=== PATIENT | female | born 1945 | race Caucasian/White ===

== ENCOUNTER 2018-06-24 08:42 | Day surgery (SDC) | payer MEDICARE, SELFPAY ==
--- NOTE | 2018-06-23 13:15 | POEE_ITS ---
History of Present Illness Chief Complaint: Progressive decreased vision, right eye Narrative: The patient is a 72-year-old lady with history of glaucoma maintained on 2 medications. She has noted progressive decreased vision in her right eye. She has previously undergone cataract surgery in her left eye in 2013. On examination she is noted to have moderate nuclear cataract in the right eye. The option of cataract surgery was offered to the patient and she wished to proceed. NOTE: The Chief Complaint, HPI, Past Medical History, Past Surgical History, Family History, Social History, Medications, and complete Ophthalmic Exam with detailed Assessment and Plan have already been documented in the patient's outpatient ophthalmic record and are not covered again in detail here. [facility] Medical History Primary open angle glaucoma (POAG) of left eye, mild stage (Chronic) Primary open angle glaucoma (POAG) of right eye, mild stage (Chronic) Nuclear sclerotic cataract of right eye (Acute) History of DVT of lower extremity (Acute) History of anemia (Acute) Left cataract (Acute) Memory change (Acute) Peripheral neuropathy (Acute) Restless leg syndrome (Acute) Warfarin anticoagulation (Acute) Glaucoma (Chronic) Hypertension (Chronic) Surgical History Status post cataract extraction and insertion of intraocular lens of left eye (Chronic 10/15/14) History of right breast biopsy (Acute) History of cataract surgery (Chronic) History of colonoscopy (Chronic) History of esophagogastroduodenoscopy (EGD) (Chronic) Social History Smoking/Tobacco Use Status: Former Tobacco Use Drug use: Occasionally Meds Home Medications Medication Instructions Recorded Confirmed Type alprazolam 0.5 mg PO HS 09/01/13 06/21/18 History betamethasone valerate 1 ea TOPICAL BID PRN 09/01/13 06/21/18 History gabapentin 300 mg PO HS 09/01/13 06/21/18 History latanoprost [Xalatan] 1 drp OPHTHALMIC DAILY 09/01/13 06/21/18 History ropinirole [Requip] 5 mg PO HS 09/01/13 06/21/18 History timolol maleate 1 drp OPHTHALMIC DAILY 09/01/13 06/21/18 History warfarin [Coumadin] 2.5 - 5 mg PO DIRECTED 09/01/13 06/21/18 History amlodipine 2.5 mg PO DAILY 06/21/18 06/21/18 History ascorbic acid (vitamin C) [Vitamin 500 mg PO DAILY 06/21/18 06/21/18 History C] calcium carbonate-vitamin D3 1 cap PO DAILY 06/21/18 06/21/18 History [Calcium 600 + D(3)] ferrous sulfate [iron] 325 mg PO .EVERY OTHER DAY 06/21/18 06/21/18 History Allergies Allergy/AdvReac Type Severity Reaction Status Date / Time NSAIDS (Non-Steroidal Allergy Unknown Unverified 09/05/13 06:52 Anti-Inflamma piroxicam [From Feldene] Allergy Unknown Unverified 09/05/13 06:52 shellfish derived Allergy Unknown Unverified 09/05/13 06:52 tetanus toxoid, adsorbed Allergy Unknown Unverified 09/05/13 06:52 Exam OCULAR EXAM:: Most recent ocular examination is significant for corrected visual acuity of 20/70 OD, 20/20 OS. Intraocular pressure is 15 OD, 14 OS. Extr aocular motility is normal. Slit-lamp exam reveals a 2+ nuclear cataract OD with pupils dilating to 6 mm. There is a well-positioned PCIOL OS with clear posterior capsule. Dilated exam reveals disc cupping of 0.6 OD 0.5 OS with normal vessels, macula, peripheral retina and vitreous. BRIGHTNESS ACUITY TESTING (BAT):: Brightness acuity testing of the right eye off is 20/70. Low is 20/80. Medium is 20/100. High is 20/100. Assessment and Plan (1) Nuclear sclerotic cataract of right eye: Current visit: No Status: Acute Assessment: Visually significant cataract, right eye. Plan: Cataract extraction with intraocular lens implantation, right eye Note: NOTE:: The details of the planned surgery, including the risks, i ndications,limitations,expectations,outcome and possible complications were explained to the patient. The patient understands the complications including, but not limited to: infection, hemorrhage, posterior dislocation of the lens or nuclear fragments which may require the intervention of a vitreoretinal surgeon, possible loss of the eye, or from anesthetic complications. The patient has been made aware of the option of not having surgery, that vision following surgery may not be equal to that prior to surgery, and that the planned surgery may not achieve the intended results. Following this discussion, which the patient appeared to understand, the patient wishes to proceed with cataract surgery with lens implantation of the affected eye to improve and maximize vision.
[2018-06-24] MEDS: Tropicam./Phenyleph. (1/2.5%) 5 ML BTL OD ×3 (09:34→09:48)
[2018-06-24] MEDS: Tetracaine 0.5% 4 ML BTL OD ×4 (09:34→11:06)
[2018-06-24 09:36] VITALS: BP 161/80; PULSE 60; RESP 16; TEMP 35.6; O2SAT 98
[2018-06-24] MEDS: Lidocaine 2% Jelly 6 ML SYR (11:06)
[2018-06-24] MEDS: Povidone-Iodine Ophth 30 ML BTL (11:06)
[2018-06-24] MEDS: Lidocaine 1% Pres-Free 5 ML VIAL (11:10)
[2018-06-24] MEDS: Balanced Salt Soln.-PLUS 500 ML BAG (11:10)
--- NOTE | 2018-06-24 11:35 | W.PM.DSUDISC ---
Discharge Plan Disposition Patient Disposition: HOME Condition: Stable Discharge Details Attending Provider: Anam Perkins Primary Care Provider: Sara Irving Home Meds and New Rx's Prescriptions: No Action latanoprost [Xalatan] 2.5 ML drops 1 drp Ophthalmic DAILY RF: 0 alprazolam 0.5 MG tablet 0.5 mg PO HS RF: 0 betamethasone valerate 15 GM cream 1 ea Topical BID PRN RF: 0 ropinirole [Requip] 0.5 MG tablet 5 mg PO HS RF: 0 warfarin [Coumadin] 5 MG tablet 2.5 - 5 mg PO DIRECTED RF: 0 gabapentin 300 MG capsule 300 mg PO HS RF: 0 timolol maleate 5 ML drops 1 drp Ophthalmic DAILY RF: 0 amlodipine 2.5 mg Tablet 2.5 mg PO DAILY RF: 0 ascorbic acid (vitamin C) [Vitamin C] 500 mg Tablet 500 mg PO DAILY RF: 0 ferrous sulfate [iron] 325 mg (65 mg iron) Tablet 325 mg PO .EVERY OTHER DAY RF: 0 Calcium 600 + D(3) 600 mg calcium- 200 unit Capsule 1 cap PO DAILY RF: 0 Discharge Instructions Stand Alone Forms: Post-op Topical Cataract, Yanique Alonzoey (DSU) Discharge Orders Discharge Orders: Discharge Order (Routine); Ordered 06/24/18 Ordered By: Anam Perkins DS: Diagnosis Discharge Diagnosis (1) Nuclear sclerotic cataract of right eye: Status: Acute (2) Status post cataract extraction and insertion of intraocular lens of right eye: Status: Chronic
--- NOTE | 2018-06-24 11:39 | W.PM.OP ---
Date of service: 06/24/18 Time of Service: 11:40 Operative Note PRE-OP DIAGNOSIS: Cataract, right eye PROCEDURE: Cataract extraction using phacoemulsification with intraocular lens implant, right eye SURGEON: Anam Perkins ANESTHESIA: MAC and local (sub-tenon's anesthetic infiltration) ESTIMATED BLOOD LOSS: 0 PATHOLOGY: none sent COMPLICATIONS: None Patient was transported to: same day Patient's condition: stable Implants: D[employer] / [employer] Tecnis ZCB00 intraocular lens Indications: Progressive decreased vision due to cataract, right eye Procedure Description: CATARACT SURGERY OPERATIVE REPORT PREOPERATIVE DIAGNOSIS: Nuclear cataract, right eye POSTOPERATIVE DIAGNOSIS: Same OPERATION: Cataract extraction using phacoemulsification with posterior chamber intraocular lens implant, right eye. IOL: IOL Echo Technologist/Model: J&J locr / MER Tecnis ZCB00 IOL Power: + 20.50 diopters IOL Serial Number: [id number] Optic Diameter: 6.0mm Haptic/Overall Diameter: 13.0mm PHACO INFO: Teddy Teez.mobiurion Vision System with OZil and Active Fluidics Cumulative Dispersed Energy (CDE): 11.26 seconds SURGEON: Anam Perkins MD, CARSON ANESTHESIA: Monitored Anesthesia Care (MAC), with local sub-tenon's anesthetic infiltration COMPLICATIONS: None SPECIMENS: None INDICATIONS FOR PROCEDURE: The patient is a 72-year-old lady with history of open-angle glaucoma who has previously undergone cataract surgery of her left eye in 2013. She has now developed a significant nuclear cataract in her right eye and is symptomatic enough that she desires cataract surgery and attempt to improve and maximize her vision. PROCEDURE: The correct surgical eye was identified and marked as the right eye and the pupil was dilated in the preoperative area using mydriatics and cycloplegics. The dilated pupil size was 7.0 mm. Oral sedation was administered in the form of an Imprimis MKO Melt (midazolam 3mg/ketamine 25mg/ondansetron 2mg). The patient was brought to the operating room where cardiopulmonary monitoring was instituted and surgical time-out was performed, confirming the correct operative eye and IOL power. Topical anesthesia was administered and ophthalmic povidone-iodine 5% was instilled into the conjunctival fornices. Lidocaine gel was applied to the cornea and the carlos-ocular area was prepped with Betadine 10% solution and draped in the usual sterile fashion for intraocular surgery, including an aperture drape. A Tegaderm transparent film dressing was cut in half and used to cover the lashes and lid margins. Care was taken to sequester the lashes and lid margins under the Tegaderm dressing. A lid speculum was placed between the lids of the operative eye and the Tabby-Sharron operating microscope was maneuvered into position. Nathalie scissors were then used to make a conjunctival buttonhole approximately 6mm posterior to the limbus in the inferonasal quadrant. Blunt dissection was carried out to expose bare sclera, and a blunt-tipped sub-tenon?s anesthesia cannula was introduced and passed posteriorly along the globe where non-preserved plain lidocaine was injected into posterior sub-Tenon?s space. A sideport knife was used to make a paracentesis port inferiortemporally, and the anterior chamber was filled with Healon GV. A 2.4mm keratome knife was used to create a half-thickness groove at the limbus and then to construct a three-plane near-clear corneal tunnel extending 2.0mm into clear cornea in the superiortemporal position. . A flap was raised on the anterior capsule and capsulorhexis forceps were used to complete a continuous curvilinear capsulorhexis of 5.0 mm. Balanced salt solution was then used to perform cortical cleaving hydrodissection and nuclear hydrodelineation until the lens could be freely rotated within the capsular bag. The lens nucleus was then disassembled and removed within the capsular bag and iris plane using phacoemulsification. Residual cortical material was removed using the I/A handpiece. The posterior capsule was carefully polished to remove as much residual lens epithelial cells as safely possible. The capsular bag was then inflated and the anterior chamber deepened with viscoelastic. The lens implant described above was inserted into the capsular bag using the MER [place] Injector. A Kuglen hook was used to dial the IOL into position. Residual viscoelastic was then removed first from posterior to the IOL, then from the anterior chamber using the I/A handpiece. The lens implant was noted to center nicely within the capsular bag. The incisions were stromally hydrated, and the anterior chamber was reformed using BSS. Then 0.4cc of moxifloxacin 1.5mg/ml were injected into the capsular bag and anterior chamber. The incisions were checked with a Weck spear and found to be secure. Several drops of ophthalmic povidone-iodine 5% were then applied to the eye followed by two drops of Imprimis combination moxifloxacin/dexamethasone solution. The drapes were removed and a clear plastic protective eye shield was placed over the eye. The patient was then returned to Same Day Surgery in stable condition.
--- NOTE | 2018-06-24 11:43 | ROE_ITS ---
Date of service: 06/24/18 Time of Service: 11:40 Operative Note PRE-OP DIAGNOSIS: Cataract, right eye PROCEDURE: Cataract extraction using phacoemulsification with intraocular lens implant, right eye SURGEON: Anam Perkins ANESTHESIA: MAC and local (sub-tenon's anesthetic infiltration) ESTIMATED BLOOD LOSS: 0 PATHOLOGY: none sent COMPLICATIONS: None Patient was transported to: same day Patient's condition: stable Implants: Dane [employer] Dane [employer] / [employer] Tecnis ZCB00 intraocular lens Indications: Progressive decreased vision due to cataract, right eye Procedure Description: CATARACT SURGERY OPERATIVE REPORT PREOPERATIVE DIAGNOSIS: Nuclear cataract, right eye POSTOPERATIVE DIAGNOSIS: Same OPERATION: Cataract extraction using phacoemulsification with posterior chamber intraocular lens implant, right eye. IOL: IOL Sagger Maker/Model: J[employer]J [employer] / MER Tecnis ZCB00 IOL Power: + 20.50 diopters IOL Serial Number: [id number] Optic Diameter: 6.0mm Haptic/Overall Diameter: 13.0mm PHACO INFO: Teddy AiCurisurion Vision System with OZil and Active Fluidics Cumulative Dispersed Energy (CDE): 11.26 seconds SURGEON: Anam Perkins MD, CARSON ANESTHESIA: Monitored Anesthesia Care (MAC), with local sub-tenon's anesthetic infiltration COMPLICATIONS: None SPECIMENS: None INDICATIONS FOR PROCEDURE: The patient is a 72-year-old lady with history of open-angle glaucoma who has previously undergone cataract surgery of her left eye in 2013. She has now developed a significant nuclear cataract in her right eye and is symptomatic enough that she desires cataract surgery and attempt to improve and maximize her vision. PROCEDURE: The correct surgical eye was identified and marked as the right eye and the pupil was dilated in the preoperative area using mydriatics and cycloplegics. The dilated pupil size was 7.0 mm. Oral sedation was administered in the form of an Imprimis MKO Melt (midazolam 3mg/ketamine 25mg/ondansetron 2mg). The patient was brought to the operating room where cardiopulmonary monitoring was instituted and surgical time-out was performed, confirming the correct operative eye and IOL power. Topical anesthesia was administered and ophthalmic povidone-iodine 5% was instilled into the conjunctival fornices. Lidocaine gel was applied to the cornea and the carlos-ocular area was prepped with Betadine 10% solution and draped in the usual sterile fashion for intraocular surgery, including an aperture drape. A Tegaderm transparent film dressing was cut in half and used to cover the lashes and lid margins. Care was taken to sequester the lashes and lid margins under the Tegaderm dressing. A lid speculum was placed between the lids of the operative eye and the Tabby-Sharron operating microscope was maneuvered into position. Nathalie scissors were then used to make a conjunctival buttonhole approximately 6mm posterior to the limbus in the inferonasal quadrant. Blunt dissection was carried out to expose bare sclera, and a blunt-tipped sub-tenon?s anesthesia cannula was introduced and passed posteriorly along the globe where non- preserved plain lidocaine was injected into posterior sub-Tenon?s space. A sideport knife was used to make a paracentesis port inferiortemporally, and the anterior chamber was filled with Healon GV. A 2.4mm keratome knife was used to create a half-thickness groove at the limbus and then to construct a three-plane near-clear corneal tunnel extending 2.0mm into clear cornea in the superiortemporal position. . A flap was raised on the anterior capsule and capsulorhexis forceps were used to complete a continuous curvilinear capsulorhexis of 5.0 mm. Balanced salt solution was then used to perform cortical cleaving hydrodissection and nuclear hydrodelineation until the lens could be freely rotated within the capsular bag. The lens nucleus was then disassembled and removed within the capsular bag and iris plane using phacoemulsification. Residual cortical material was removed using the I/A handpiece. The posterior capsule was carefully polished to remove as much residual lens epithelial cells as safely possible. The capsular bag was then inflated and the anterior chamber deepened with viscoelastic. The lens implant described above was inserted into the capsular bag using the MER [place] Injector. A Kuglen hook was used to dial the IOL into position. Residual viscoelastic was then removed first from posterior to the IOL, then from the anterior chamber using the I/A handpiece. The lens implant was noted to center nicely within the capsular bag. The incisions were stromally hydrated, and the anterior chamber was reformed using BSS. Then 0.4cc of moxifloxacin 1.5mg/ml were injected into the capsular bag and anterior chamber. The incisions were checked with a Weck spear and found to be secure. Several drops of ophthalmic povidone-iodine 5% were then applied to the eye followed by two drops of Imprimis combination moxifloxacin/dexamethasone solution. The drapes were removed and a clear plastic protective eye shield was placed over the eye. The patient was then returned to Same Day Surgery in stable condition.
[2018-06-24 11:54] VITALS: BP 130/79; PULSE 60; RESP 16; TEMP 36.6; O2SAT 98
== END 2018-06-24 12:11 | disposition home or self-care (01) ==
PROVIDERS: PCP Internal Medicine; Visit Provider Ophthalmology
PROC: (CPT 66984; principal; 2018-06-24 12:00)
DX: H25.11 Age-related nuclear cataract, right eye (principal); Z98.42 Cataract extraction status, left eye; Z96.1 Presence of intraocular lens; I10 Essential (primary) hypertension
CPT/HCPCS: 66984; V2632

== ENCOUNTER 2018-09-12 09:43 | Outpatient (CLI) | payer MEDICARE, SELFPAY ==
[2018-09-12 10:24] LABS: HCT 42.7 % (36.0-46.0); HGB 14.3 g/dL (12.0-15.5); Mean Corp. HGB Concentration 33.5 g/dL (32.0-36.0); Mean Corpuscular Hemoglobin 30.5 pg (27.0-33.0); Mean Platelet Volume 10.9 fL (8.0-11.0); Platelet Count 221 x1000/uL (130-400); RBC 4.69 m/cumm (4.00-5.20); RBC Distribution Width 13.5 % (11.7-14.6); White Blood Cell Count 5.16 k/cumm (4.4-10.8)
[2018-09-12 12:01] LABS: ALT 27 U/L (12-78); AST 27 U/L (15-37); Albumin 3.7 g/dL (3.4-5.0); Alkaline Phosphatase 67 U/L (46-116); Anion Gap 10.7 mmol/L (3-11); BUN 24 mg/dL (7-18); Bilirubin, Total 0.5 mg/dL (0.2-1.0); CO2 25.3 mmol/L (21.0-32.0); Calculated LDL 108; Chloride 106 mmol/L (98-107); Cholesterol 181 mg/dL (50-200); Estimated GFR 54.05 (mL/min/1.73m2); Glucose 100 mg/dL (70-100); HDL Cholesterol 46 mg/dL (40-60); Potassium 4.6 mmol/L (3.5-5.1); Sodium 142 mmol/L (136-145); Total Protein 7.2 g/dL (6.4-8.2); Triglyceride 138 mg/dL (30-150)
== END 2018-09-12 10:03 ==
PROVIDERS: PCP Nurse Practitioner; Visit Provider Nurse Practitioner
DX: G62.9 Polyneuropathy, unspecified (principal); I10 Essential (primary) hypertension; I82.409 Acute embolism and thrombosis of unspecified deep veins of unspecified lower extremity; Z86.718 Personal history of other venous thrombosis and embolism
CPT/HCPCS: 36415; 80053; 80061; 83721; 85027

== ENCOUNTER 2019-11-20 02:22 | Outpatient (CLI) | payer MEDICARE, SELFPAY ==
[2019-11-20 09:14] LABS: HCT 46.7 % (36.0-46.0); HGB 15.4 g/dL (11.2-15.7); MCH 30.1 pg (27.0-33.0); MCV 91.2 fL (80-95); MPV 10.6 fL (8.0-11.0); Platelet Count 238 10^3/uL (130-400); RBC 5.12 10^6/uL (3.93-5.22); RDW 12.8 % (11.7-14.6); RDW-SD 43.2 fL; WBC 5.89 10^3/uL (4.4-10.8)
[2019-11-20 10:35] LABS: ALT 28 U/L (14-59); AST 25 U/L (15-37); Albumin 3.7 g/dL (3.4-5.0); Alkaline Phosphatase 69 U/L (46-116); Anion Gap 9.5 mmol/L (3-11); BUN 24 mg/dL (7-18); Bilirubin, Total 0.5 mg/dL (0.2-1.0); CO2 26.5 mmol/L (21.0-32.0); CREATININE 1.09 mg/dL (0.55-1.02); Calcium 9.7 mg/dL (8.5-10.1); Calculated LDL 135 mg/dL (<100); Chloride 107 mmol/L (98-107); Cholesterol 212 mg/dL (<200); Glucose 99 mg/dL (74-106); HDL Cholesterol 49 mg/dL (40-60); Potassium 4.9 mmol/L (3.5-5.1); Sodium 143 mmol/L (136-145); Total Protein 7.2 g/dL (6.4-8.2); Triglyceride 144 mg/dL (<150)
== END 2019-11-20 02:42 ==
PROVIDERS: PCP Nurse Practitioner; Visit Provider Nurse Practitioner
DX: I10 Essential (primary) hypertension (principal); G25.81 Restless legs syndrome; Z86.718 Personal history of other venous thrombosis and embolism
CPT/HCPCS: 36415; 80053; 80061; 85027

== ENCOUNTER 2020-10-16 03:34 | Outpatient (CLI) | payer MEDICARE, SELFPAY ==
[2020-10-16 09:00] LABS: HCT 45.1 % (36.0-46.0); MCH 30.2 pg (27.0-33.0); MCHC 33.3 % (32.0-36.0); MCV 90.7 fL (80-95); MPV 10.5 fL (8.0-11.0); Platelet Count 219 10^3/uL (130-400); RBC 4.97 10^6/uL (3.93-5.22); RDW 12.8 % (11.7-14.6); RDW-SD 42.8 fL; WBC 5.99 10^3/uL (4.4-10.8)
[2020-10-16 09:51] LABS: ALT 29 U/L (14-59); AST 19 U/L (15-37); Albumin 3.8 g/dL (3.4-5.0); Alkaline Phosphatase 65 U/L (46-116); Anion Gap 9.4 mmol/L (3-11); BUN 26 mg/dL (7-18); Bilirubin, Total 0.5 mg/dL (0.2-1.0); CO2 26.6 mmol/L (21.0-32.0); CREATININE 1.3 mg/dL (0.55-1.02); Calcium 9.4 mg/dL (8.5-10.1); Chloride 109 mmol/L (98-107); Estimated GFR 39.72 (mL/min/1.73m2); Glucose 102 mg/dL (74-106); Potassium 4.5 mmol/L (3.5-5.1); Sodium 145 mmol/L (136-145); Total Protein 7.2 g/dL (6.4-8.2)
[2020-10-16 20:08] LABS: Calculated LDL 133 mg/dL (<100); Cholesterol 207 mg/dL (<200); HDL Cholesterol 51 mg/dL (40-60); Triglyceride 117 mg/dL (<150)
== END 2020-10-16 03:35 | disposition home or self-care (01) ==
LOC: LBO 03:35
PROVIDERS: PCP Nurse Practitioner; Visit Provider Nurse Practitioner
DX: I10 Essential (primary) hypertension (principal); E78.5 Hyperlipidemia, unspecified
CPT/HCPCS: 36415; 80053; 80061; 85027

== ENCOUNTER 2021-03-24 03:26 | Outpatient (CLI) | payer MEDICARE, SELFPAY ==
[2021-03-24 13:38] LABS: Anion Gap 7.7 mmol/L (3-11); BUN 22 mg/dL (7-18); CO2 27.3 mmol/L (21.0-32.0); CREATININE 1.1 mg/dL (0.55-1.02); Calcium 9.3 mg/dL (8.5-10.1); Chloride 106 mmol/L (98-107); Estimated GFR 48.16 (mL/min/1.73m2); Glucose 94 mg/dL (74-106); Potassium 4.4 mmol/L (3.5-5.1); Sodium 141 mmol/L (136-145)
== END 2021-03-24 03:27 | disposition home or self-care (01) ==
LOC: LBO 03:26
PROVIDERS: PCP Nurse Practitioner; Visit Provider Nurse Practitioner
DX: I10 Essential (primary) hypertension (principal); R79.89 Other specified abnormal findings of blood chemistry
CPT/HCPCS: 36415; 80048

== ENCOUNTER 2021-10-16 02:18 | Outpatient (CLI) | payer MEDICARE, SELFPAY ==
[2021-10-16 07:58] LABS: HCT 44.8 % (36.0-46.0); HGB 14.7 g/dL (11.2-15.7); MCH 29.8 pg (27.0-33.0); MCHC 32.8 % (32.0-36.0); MCV 91 fL (80-95); MPV 10.3 fL (8.0-11.0); Platelet Count 234 10^3/uL (130-400); RBC 4.93 10^6/uL (3.93-5.22); RDW 12.7 % (11.7-14.6); RDW-SD 42.5 fL; WBC 5.91 10^3/uL (4.4-10.8)
[2021-10-16 08:12] LABS: PTT Activated 24.7 sec (21.0-27.5); Prothrombin Time 10.1 sec (9.3-11.0)
[2021-10-16 08:58] LABS: ALT 27 U/L (14-59); AST 21 U/L (15-37); Albumin 3.8 g/dL (3.4-5.0); Alkaline Phosphatase 59 U/L (46-116); BUN 26 mg/dL (7-18); Bilirubin, Total 0.5 mg/dL (0.2-1.0); CREATININE 1.2 mg/dL (0.55-1.02); Calculated LDL 114 mg/dL (<100); Chloride 110 mmol/L (98-107); Cholesterol 188 mg/dL (<200); Estimated GFR 43.45 (mL/min/1.73m2); Glucose 97 mg/dL (74-106); HDL Cholesterol 54 mg/dL (40-60); Potassium 4.4 mmol/L (3.5-5.1); Sodium 146 mmol/L (136-145); Total Protein 7.6 g/dL (6.4-8.2); Triglyceride 103 mg/dL (<150)
== END 2021-10-16 02:19 | disposition home or self-care (01) ==
LOC: LBO 02:18
PROVIDERS: PCP Nurse Practitioner; Visit Provider Nurse Practitioner
DX: E78.5 Hyperlipidemia, unspecified (principal); I10 Essential (primary) hypertension; R06.02 Shortness of breath; Z86.718 Personal history of other venous thrombosis and embolism
CPT/HCPCS: 36415; 80053; 80061; 85027; 85610; 85730

== ENCOUNTER 2021-11-17 08:43 | Outpatient (CLI) | payer MEDICARE, SELFPAY ==
--- NOTE | 2021-11-17 08:30 | DI.RAD_ITS ---
Exam(s) XR KNEE RT 3V AP,LAT,KATEY EXAM: XR KNEE RT 3V AP,LAT,KATEY CLINICAL HISTORY: right knee pain. TECHNIQUE: 2D digital imaging was performed. COMPARISON: CR XR KNEE LT 3V AP,LAT,KATEY from 11/17/2021 FINDINGS: 3 views No evidence of fracture. There is a joint effusion. Significant narrowing of the medial compartment . Mild narrowing of the lateral compartment. Significant advanced narrowing of the patellofemoral c ompartment. Bone density normal. No osseous lesions IMPRESSION: Osteoarthritic degenerative changes as described above. Small joint effusion. DATA REPOSITORY: RADIATION DOSE DELIVERED:
--- NOTE | 2021-11-17 08:30 | DI.RAD_ITS ---
Exam(s) XR KNEE LT 3V AP,LAT,KATEY EXAM: XR KNEE LT 3V AP,LAT,KATEY CLINICAL HISTORY: left knee pain. TECHNIQUE: 2D digital imaging was performed. COMPARISON: No exams were available for comparison FINDINGS: 3 views No evidence of fracture or obvious joint effusion. There is advanced narrowing of the patellofemoral compartment, similar to the opposite side. Moderate narrowing of the medial compartment. Lateral mild narrowing. Marginal osteophytes. Bone d ensity normal. No ominous osseous lesions IMPRESSION: Osteoarthritic degenerative changes, most evident in the medial and patellofemoral compartments. DATA REPOSITORY: RADIATION DOSE DELIVERED:
== END 2021-11-17 08:44 | disposition home or self-care (01) ==
LOC: DIORS 08:44
PROVIDERS: PCP Nurse Practitioner; Referring Provider Nurse Practitioner; Visit Provider Physician Assistant
DX: M17.11 Unilateral primary osteoarthritis, right knee; M17.12 Unilateral primary osteoarthritis, left knee
CPT/HCPCS: 20610; 73562; 99214; J1040

== ENCOUNTER → 2022-01-12 08:51 | Outpatient (BNVA) | payer MEDICARE, SELFPAY | PROVIDERS: PCP Nurse Practitioner; Referring Provider Nurse Practitioner; Visit Provider Student in an Organized Health Care Education/Training Program | DX: M17.11 Unilateral primary osteoarthritis, right knee (principal); M17.12 Unilateral primary osteoarthritis, left knee | CPT/HCPCS: 99214 ==

== ENCOUNTER 2022-02-09 02:31 | Outpatient (CLI) | payer MEDICARE, SELFPAY ==
[2022-02-09 10:54] LABS: HCT 43.2 % (36.0-46.0); HGB 14.4 g/dL (11.2-15.7); MCH 30.5 pg (27.0-33.0); MCHC 33.3 % (32.0-36.0); MCV 92 fL (80-95); MPV 10.3 fL (8.0-11.0); Platelet Count 229 10^3/uL (130-400); RBC 4.72 10^6/uL (3.93-5.22); RDW 12.8 % (11.7-14.6); WBC 7.27 10^3/uL (4.4-10.8)
[2022-02-09 11:07] LABS: Anion Gap 7.1 mmol/L (3-11); BUN 22 mg/dL (7-18); CO2 26.9 mmol/L (21.0-32.0); CREATININE 1.3 mg/dL (0.55-1.02); Calcium 9.1 mg/dL (8.5-10.1); Chloride 106 mmol/L (98-107); Estimated GFR 42.09 (mL/min/1.73m2); Glucose 95 mg/dL (74-106); Potassium 4.4 mmol/L (3.5-5.1); Sodium 140 mmol/L (136-145)
== END 2022-02-09 02:32 | disposition home or self-care (01) ==
LOC: LBO 02:31
PROVIDERS: PCP Nurse Practitioner; Visit Provider Student in an Organized Health Care Education/Training Program
DX: M17.11 Unilateral primary osteoarthritis, right knee (principal); Z01.818 Encounter for other preprocedural examination
CPT/HCPCS: 36415; 80048; 85027

== ENCOUNTER 2022-02-09 09:54 | Outpatient (CLI) | payer MEDICARE, SELFPAY ==
--- NOTE | 2022-02-09 09:30 | DI.RAD_ITS ---
Exam(s) XR KNEE RT 1V EXAM: XR KNEE RT 1V CLINICAL HISTORY: TKR planning. TECHNIQUE: 2D digital imaging was performed. COMPARISON: CR XR KNEE RT 3V AP,LAT,KATEY from 11/17/2021 FINDINGS: Single lateral view: No evidence of obvious fracture but there is a joint effusion. Advanced narrowing of the patellofemo ral compartment noted. Also significant narrowing of the medial compartment. Bone density normal. No osseous lesions. IMPRESSION: Degenerative changes. DATA REPOSITORY: RADIATION DOSE DELIVERED:
--- NOTE | 2022-02-09 09:30 | DI.RAD_ITS ---
Exam(s) XR STANDING ALIGNMENT EXAM: XR STANDING ALIGNMENT CLINICAL HISTORY: TKR planning. TECHNIQUE: 2D digital imaging was performed. COMPARISON: CR XR KNEE RT 3V AP,LAT,KATEY from 11/17/2021 CR XR KNEE LT 3V AP,LAT,KATEY from 11/17/2021 FINDINGS: 3 views There is advanced narrowing of the medial compartment of the right knee and marginal osteophytes agai n noted. Lateral compartment of the right knee exhibits preserved height but there does appear to be an intra-articular osteophyte at this level. There is milder narrowing of the medial compartment of the opposite-left knee. Bone density normal. No osseous lesions. Hips appear unremarkable as do the ankles. IMPRESSION: Medial compartment degenerative changes bilaterally but with minimal change compared to prior images of 11/17/2021. DATA REPOSITORY: RADIATION DOSE DELIVERED:
== END 2022-02-09 09:55 | disposition home or self-care (01) ==
LOC: DIORS 09:54
PROVIDERS: PCP Nurse Practitioner; Referring Provider Nurse Practitioner; Visit Provider Physician Assistant
DX: M17.11 Unilateral primary osteoarthritis, right knee (principal); Z01.818 Encounter for other preprocedural examination
CPT/HCPCS: 36415; 80048; 85027; 73560; 77073

== ENCOUNTER 2022-02-18 07:49 | Day surgery (SDC) | payer MEDICARE, SELFPAY ==
[2022-02-18] VITALS (10 sets, daily range): BP systolic 123–168; BP diastolic 54–77; PULSE 56–64; RESP 13–18; TEMP 36–36.4; O2SAT 98–100; BMI 29.7
[2022-02-18] MEDS: Gabapentin 300 MG CAP PO (08:54)
[2022-02-18] MEDS: Acetaminophen 500 MG TAB 1000 MG PO (08:54)
[2022-02-18] MEDS: Celecoxib 200 MG CAP 400 MG PO (08:54)
--- NOTE | 2022-02-18 08:57 | W.ANESPRE ---
General Info Date of Service Date Performed: 02/18/22 Height: 5 ft 4 in Weight: 78.7 kg Body Mass Index (BMI): 29.7 Surgical Procedure: Operation Date: 02/18/22 10:10 Proposed Procedure Side Surgeon p Knee Total Arthroplasty Right Shyam Posey MD Meds Allergies and Home Medications Allergies Allergy/AdvReac Type Severity Reaction Status Date / Time NSAIDS (Non-Steroidal Allergy Severe GI Verified 02/18/22 08:31 Anti-Inflamma bleeding - anemic shellfish derived Allergy Intermediate rash/hives Verified 02/18/22 08:31 of neck piroxicam [From Feldene] AdvReac Intermediate diarrhea Verified 02/18/22 08:31 tetanus toxoid, adsorbed AdvReac Intermediate redness/soreness, Verified 02/18/22 08:31 swelling of arm Home Medication Medication Instructions Recorded latanoprost 0.005 % eye drops 1 drp ophthalmic (eye) HS 09/01/13 (Xalatan) gabapentin 300 mg capsule 300 mg PO HS #90 caps 03/25/21 ropinirole 5 mg tablet 5 mg PO BID rls #180 tabs 03/25/21 apixaban 5 mg tablet (Eliquis) 5 mg PO BID #180 tabs 09/23/21 betamethasone valerate 0.1 % 1 applic topical BID PRN #45 grams 09/23/21 topical cream clonazepam 0.5 mg tablet 0.5 mg PO QHS #90 tabs 09/23/21 cod liver oil 1 cap PO DAILY 02/09/22 Current Visit Medications: Current Medications Generic Name Dose Route Start Last Admin Trade Name Freq PRN Reason Stop Dose Admin Acetaminophen 1,000 mg 02/18/22 06:00 02/18/22 08:54 Acetaminophen 500 Mg Tab PO 1,000 mg PREOP ANN-MARIE Administration Acetaminophen 1,000 mg 02/18/22 14:00 Acetaminophen 500 Mg Tab PO TID ANN-MARIE Celecoxib 400 mg 02/18/22 06:00 02/18/22 08:54 Celecoxib 200 Mg Cap PO 400 mg PREOP ANN-MARIE Administration Celecoxib 200 mg 02/18/22 20:00 Celecoxib 200 Mg Cap PO BID ANN-MARIE Docusate Sodium 100 mg 02/18/22 07:36 Docusate Sodium 100 Mg Cap PO BID PRN PRN Constipation Gabapentin 300 mg 02/18/22 06:00 02/18/22 08:54 Gabapentin 300 Mg Cap PO 300 mg PREOP ANN-MARIE Administration Tranexamic Acid 1,000 mg/ 60 mls @ 360 mls/hr 02/18/22 06:00 Sodium Chloride IVPB 02/18/22 18:00 PREOP ANN-MARIE Ringer's Solution 1,000 mls @ 80 mls/hr 02/18/22 06:00 IV 02/18/22 23:59 INFUSION ANN-MARIE Cefazolin Sodium/Dextrose 2 gm in 50 mls @ 100 mls/hr 02/18/22 06:00 Ancef Duplex IVPB 02/18/22 23:59 PREOP ANN-MARIE Cefazolin Sodium/Dextrose 1 gm in 50 mls @ 100 mls/hr 02/18/22 20:00 Ancef Duplex IVPB Q8H [facility] IV Miscellaneous Supplies 1 each 02/18/22 06:00 Iv Access IV 02/18/22 23:59 DIRECTED [facility] Ondansetron HCl 4 mg 02/18/22 07:36 Ondansetron 4 Mg/2 Ml Vial IVP Q6H PRN PRN Nausea Oxycodone HCl 0 mg 02/18/22 07:36 Oxycodone 5 Mg Tab PO Q3H PRN PRN Pain Pantoprazole Sodium 40 mg 02/19/22 07:30 Pantoprazole 40 Mg Tabcr PO DAILY@0730 [facility] Polyethylene Glycol 17 gm 02/18/22 07:36 Polyethylene Glycol 3350 17 Gm Packet PO BID PRN PRN Constipation Sodium Chloride 0 ml 02/18/22 06:00 Normal Saline Flush 10 Ml Syr IV 02/18/22 23:59 PRN PRN Sodium Chloride 0 ml 02/18/22 06:00 Normal Saline 10 Ml Vial IJ 02/18/22 23:59 DIRECTED PRN Sterile Water 0 ml 02/18/22 06:00 Water,Injection,Sterile 10 Ml Vial IJ 02/18/22 23:59 DIRECTED PRN PFSH Active Problems Active Problems: Problem Status Onset Code 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 joint disease of right knee M17.11 Abnormal blood chemistry R79.9 Frequent nosebleeds R04.0 History of DVT of lower extremity Z86.718 Anxiety F41.9 Hyperlipidemia E78.5 Hypertension I10 Memory change R41.3 Peripheral neuropathy G62.9 Restless leg syndrome G25.81 Nuclear sclerotic cataract of right eye H25.11 Primary open angle glaucoma (POAG) of right eye, mild stage H40.1111 Primary open angle glaucoma (POAG) of left eye, mild stage H40.1121 History of DVT (deep vein thrombosis) Z86.718 Bunion M21.619 Hammer toe M20.40 Cough R05 Wheeze R06.2 SOB (shortness of breath) R06.02 Medical History Medical History Glaucoma History of anemia Left cataract Synovitis of right knee Medical History Comments:: pt smoked marijuana 02/17/22 1700 Surgical History Surgical History H/O right knee surgery History of cataract surgery History of colonoscopy History of esophagogastroduodenoscopy (EGD) History of right breast biopsy History of tonsillectomy Status post cataract extraction and insertion of intraocular lens of left eye (10/15/14) Status post cataract extraction and insertion of intraocular lens of right eye (06/24/18) Tobacco Smoking/Tobacco Use Status: Former Tobacco Use Second hand exposure: No Alcohol Alcohol Intake: never Substance Use Substance use: Daily Substance use type: marijuana Details: Smoked marijuana 02/18/22 1700 Vital Signs and Lab Results Vital Signs Most Recent Vital Signs in EMR: Most Recent Vital Signs Temp Pulse Resp BP Pulse Ox 36.4 C L 64 16 168/77 H 99 02/18/22 08:21 02/18/22 08:21 02/18/22 08:21 02/18/22 08:21 02/18/22 08:21 Lab Results Blood Type / Crossmatch: No Data to Display Complete Blood Count: White Blood Count 7.27 10^3/uL (4.4-10.8) 02/09/22 10:40 Red Blood Count 4.72 10^6/uL (3.93-5.22) 02/09/22 10:40 Hemoglobin 14.4 g/dL (11.2-15.7) 02/09/22 10:40 Hematocrit 43.2 % (36.0-46.0) 02/09/22 10:40 Platelet Count 229 10^3/uL (130-400) 02/09/22 10:40 Complete Metabolic Panel: Sodium 140 mmol/L (136-145) 02/09/22 10:40 Potassium 4.4 mmol/L (3.5-5.1) 02/09/22 10:40 Chloride 106 mmol/L (98-107) 02/09/22 10:40 Carbon Dioxide 26.9 mmol/L (21.0-32.0) 02/09/22 10:40 BUN 22 mg/dL (7-18) H 02/09/22 10:40 Creatinine 1.3 mg/dL (0.55-1.02) H 02/09/22 10:40 Est GFR (CKD-EPI 2020) 42.09 (mL/min/1.73m2) 02/09/22 10:40 Calcium 9.1 mg/dL (8.5-10.1) 02/09/22 10:40 Glucose 95 mg/dL (74-106) 02/09/22 10:40 Liver Function Panel: No Data to Display Coagulation Panel: No Data to Display Cardiac Panel: No Data to Display Arterial Blood Gas: No Data to Display Venous Blood Gas: No Data to Display Pancreas Panel: No Data to Display Thyroid Panel: No Data to Display Infectious Disease: No Data to Display Blood Cultures: No Data to Display Toxicology Panel: No Data to Display Anesthesia Assessment and Plan Anesthesia History Personal History: No History of Anesthesia Complications Family History: No Family History of Anesthesia Complications Exercise Tolerance Exercise Tolerance: Metabolic Equivalents>4 Pertinent Negatives Pertinent Negatives: No Symptoms of GERD Cardiac & Pulmonary Exam Cardiac Exam: Normal S1/S2 Heart Sounds Pulmonary Exam: Clear Bilateral Breath Sounds Implantable Cardiac Device Does patient have a Pacemaker or an ICD?: No Airway Exam Known Difficult Airway: No Mallampati Class: 2 Mouth Opening: Normal (> 3cm) Thyromental Distance: Greater than 3 cm Neck Range of Motion: Full ROM Neck Circumference: Normal Teeth Condition: Normal Dentition and Loose or Chipped (Right upper #) Tooth Numberin. Chip back #13 2. 3. ASA Classification ASA Score: ASA 2 Emergency Case?: No NPO Status NPO Status: NPO Clears >2 hours, Solids >8 hours Anesthesia Plan Resuscitation Status: Full Code Anesthesia Technique: Primary Nerve Block (R adductor canal) Airway Planned: Natural Airway Pain Management: Surgeon and patient request nerve block Monitors Used: Standard Monitors Preoperative Comments:: Agrees with plans.
[2022-02-18] MEDS: Lactated Ringers 1,000 ML 80 ML IV (09:01)
--- NOTE | 2022-02-18 09:39 | PDOC.DSDIS_ITS ---
Date of service: 02/18/22 Time of Service: 09:40 Discharge Plan Disposition Patient Disposition: HOME Condition: Good Discharge Details Reason For Visit: R TKR Attending Provider: Shyam Posey Primary Care Provider: Marah Gonzales Home Meds and New Rx's Prescriptions: New celecoxib 200 mg capsule 200 mg PO BID Qty: 60 0RF acetaminophen 500 mg tablet 1,000 mg PO TID Qty: 90 3RF pantoprazole 40 mg tablet,delayed release (DR/EC) 40 mg PO DAILY Qty: 30 0RF oxycodone 5 mg tablet 5 mg PO Q4H MDD 6 tabs PRN (Reason: pain) Qty: 20 0RF dexamethasone 4 mg tablet 4 mg PO DAILY Qty: 2 0RF Continued ropinirole 5 mg tablet 5 mg PO BID Qty: 180 3RF Rx Instructions: 1 tab at 4pm and 1 tab at HS gabapentin 300 mg capsule 300 mg PO HS Qty: 90 3RF cod liver oil Capsule 1 cap PO DAILY Eliquis 5 mg tablet 5 mg PO BID Qty: 180 3RF betamethasone valerate 0.1 % cream 1 applic Topical BID PRN Qty: 45 2RF Rx Instructions: Use behind ears bilaterally clonazepam 0.5 mg tablet 0.5 mg PO QHS Qty: 90 1RF latanoprost [Xalatan] 2.5 ML drops 1 drp Ophthalmic HS Discharge Instructions Additional Instructions: Total Knee Discharge Instructions Activity: The most important activity is to walk and to work on gentle motion (both flexion and extension). You should try to take short walks a few times a day. It is important that when resting you work on keeping the knee straight. Avoid putting a pillow behind the knee as this will encourage flexion. Work on range of motion exercises as provided by Physical Therapy. - Start outpatient physical therapy within 2 weeks. - You should wear the JOVANNI hose on both legs for 2 weeks. You may remove these at night. You may also use any compression sock in place of the JOVANNI hose. - Utilize [employer] to review exercises, see videos on exercises and obtain basic information pertaining to your surgery and your recovery. Dressing: Remove the Rajesh wrap by 2 days after your surgery and put on the JOVANNI stocking given to you from the hospital. Keep the surgical dressing (underneath the RAJESH wrap) in place for at least one week. After the first week it may be removed and replaced with light gauze and tape or nothing. The wound and dressing may get wet after 3 days but avoid soaking the dressing or otherwise it will need to be changed. Many people prefer covering the dressing with cling wrap (saran wrap) to minimize it from getting soaked. If it gets wet, just pat dry. If it starts to peel off then it will need to be changed. Medications: - You should take Tylenol and anti-inflammatory Celebrex as your primary pain control medications. If the Celebrex is too expensive or not covered, please call the office for another alternative (Advil/Ibuprofen or Naproxen/Aleve) - You have been prescribed a stronger pain medication Oxycodone for breakthrough pain, take as needed as prescribed. - You have also been prescribed a stomach acid reduction agent Pantoprozole to help reduce stomach acid and reflux. - You will be taking your apixaban for DVT prevention unless instructed otherwise. - You have also been prescribed Decadron to take to control post-operative nausea and pain. You will start this tomorrow. - If you have constipation you should take Colace or Miralax (both [id number]). It takes most people 3-4 days to have a bowel movement. Follow-up: 2 weeks If you have any acute concerns or questions, please do not hesitate to contact the office at [phone]. You may contact Dr. Posey with any questions after hours through the hospital at [phone] or on his cell phone at [phone]. Referrals: Shyam Posey MD [ [facility] STAFF PHYSICIAN] - Equipment/Supplies: Walker Activity:: Activity as Tolerated Shower/Bathe:: 72 hours Diet:: As Tolerated
[2022-02-18] MEDS: ceFAZolin 2 GM/50 ML BAG IVPB (10:18)
--- NOTE | 2022-02-18 11:49 | W.ANESNERVE ---
Nerve Block Single Injection Procedure Date and Time Date Performed: 02/18/22 Procedure Start: 09:45 Location Where Procedure Performed Procedure Location: Day Surgery Unit Reason Performed: Postoperative Analgesia Requesting Provider: Shyam Posey Timeout Performed Timeout Performed: Yes Monitoring Used ECG, Blood Pressure, SpO2 and See EMR for corresponding vital signs Sterility Sterility: Hand Hygiene, Surgical Cap, Surgical Mask, Sterile Gloves and Chlorhexidine Sedation Given During Procedure Sedation Given (Indicate Dose Given): Versed IV Dose:: 1mg Patient Mental Status Patient Mental Status: Awake Nerve Block 1st Nerve Block: Laterality: Right Block Type: Adductor Canal Needle / Catheter Used: 100mm SonoPlex II Local Anesthetic Bolus (Indicate Dose Given): Lidocaine used for local infiltration of skin, Injected in 3-5ml increments after negative blood aspiration and Bupivacaine 0.25% Dose:: 20ml Additives (Indicate Dose Given): None Ultrasound: Sterile probe cover and gel used Ultrasound Image Saved?: Yes Nerve Stimulator: Not Used Paresthesia: None Procedure Tolerated: No Complications and Patient tolerated well Procedure Outcome: Successful Performed By: Jeremie Lancaster
--- NOTE | 2022-02-18 12:36 | ROE_ITS ---
Date of service: 02/18/22 Time of Service: 11:30 Operative Note Operative Note DATE OF PROCEDURE: 02/18/22 PRE-OP DIAGNOSIS: Right Knee Osteoarthritis POST-OP DIAGNOSIS: same PROCEDURE: Right Total Knee Replacement SURGEON: Shyam Posey [employer]: Chanda Zhang ANESTHESIA TYPE: Spinal Refer to Anesthesia Record ESTIMATED BLOOD LOSS: 200 PATHOLOGY: none sent TOURNIQUET TIME: 0 COMPLICATIONS: None Patient was transported to: PACU Patient's condition: stable Implants: 1. Depuy Attune Cementless Cruciate Retaining Femoral Component, Size 4 2. Depuy Attune Cementless Rotating Platform Tibial Component, Size 3 3. Depuy Attune 4x8 CR/RP Poly 4. Depuy Attune Patellar Component, Size 35 Indications: I have seen Dania in clinic for symptoms of knee arthritis, confirmed with radiographic findings. SHe has exhausted nonoperative methods and was having significant limitations in daily function and desired better function and less pain. I discussed the technical details of a knee replacement. I explained the risks of the procedure to include, but not limited to, bleeding, infection, pain, stiffness, fracture, damage to nerves and vessels, damage to muscles and tendons, loosening, need for repeat procedure, blood clot and cardiopulmonary de mise. Despite these risks, Dania elected to proceed. Findings: There was significant signs of arthritis throughout the knee involving all 3 compartments with significant scalloping of the patella. Procedure Description: Dania was greeted in the preoperative holding area where the correct side was identified and marked. The consent was reviewed with the patient and signed. The history and physical was updated. All questions were answered. Preoperative medications were administered: Acetaminophen 1000mg, Celebrex 400mg, and Gabapentin 300mg. An adductor canal block was then administered by the anesthesia team in the PACU. She was taken back to the operating room. A spinal anesthestic was then administered. The patient was placed into the supine position on the operating room table. A nonsterile tourniquet was placed high onto the leg but only used for cementing. Posts were placed for positioning during the procedure. All bony prominences were well padded. Prophylactic antibiotics in the form of Cefazolin were administered. 1g of Tranxemic Acid was given intravenously within 30 minutes of incision. The right leg was then prepped with Chloraprep and draped in a standard fashion with impervious stockinette. A second prep with Chloraprep was performed prior to application of Iodine impregnated skin protection. A timeout to confirm correct identity, side and site, procedure, allergies, anesthesia, and medical concerns was performed. With the knee in some flexion, a midline incision was made overlying the knee. Full thickness skin flaps were raised once the extensor mechanism was encountered. These were raised medially and laterally. Any bleeding was controlled with electrocautery. Once the extensor mechanism was fully exposed, a medial parapatellar arthrotomy was performed in a flexed position. All bleeding from the arthrotomy and the geniculate arteries was coagulated. A medial subperiosteal peel was performed with electrocautery to the midcoronal plane. Due to the significant varus deformity the entire medial tibial plateau was exposed. The fat pad was removed while keeping the patellar tendon protected. The anterior distal femur synovium was removed for later visualization. The ACL and PCL were resected and the anterior horn of the lateral meniscus was transected. The knee was then flexed with the patella everted. Large osteophytes from the tibia were removed. Large osteophytes from the femur were removed. Using a step drill, and based on preoperative templating, the femoral canal was entered. This was done with a step drill without any difficulty. The intramedullary distal femoral cut guide was inserted, set to a 6 degree valgus cut and 9mm cut thickness. The distal femoral cut guide was then held in position and pinned. With the soft tissues protected, the distal cut was performed. This was passed over a few times to ensure a planar cut. I then turned attention to the tibia. The extramedullary guide was placed onto the leg. The distal aspect was slid medial to adjust for position of center of ankle and stay in line with shaft of the tibia. Approximately 3-5 degrees of posterior slope was kept in the proximal cutting guide. The center of the guide was aligned with the PCL. The stylus was used to assess cut thickness. The medial side, most involved side, was set for a 6mm cut which corresponded to 8mm laterally. This was then held in position and pinned into place with 2 additional pins and a cross pin for stability. The medial and lateral collateral ligaments were protected and the cut was performed. With this completed, it was assessed and noted to be of appropriate dimensions. The guide was removed. A spacer block was inserted and the knee was brought into extension. The 7mm spacer block provided full extension, without hyperextension and with stability of both the medial and la teral collateral ligaments was assessed. The pins from the femur and the tibia were then removed. The distal femur was then sized. The anterior stylus was placed onto the lateral ridge of the anterior femur. This indicated a size 4 femur. The external rotation of the guide was adjusted to 3 degrees to match the epicondylar axis, perpendicular to Sj?s line. The 4-in-1 cutting guide was the placed. The posterior medial femur cut was evaluated and appeared of good thickness. The spacer block was inserted underneath the cutting guide and stability was confirmed in 90 degrees of flexion. An papa wing was used to confirm appropriate position of the anterior cut to avoid notching. This cutting guide was ensured to be flush on the cut surface and then pinned into place with headed pins. While protecting the soft tissues, quad tendon, and collateral ligaments, the anterior and posterior cuts were performed with a saw. The central two pins were removed and the posterior and anterior chamfers were cut next. The notch-cutting guide was placed. This was pinned to lateralize the femoral component as much as possible while keeping it flush on the cut surface. This was then pinned into position. A reciprocating saw was used to make the notch cut. A rasp smoothed the cut surfaces. The medial and lateral menisci were removed. A trial femoral component was then inserted, impacted down to the cut surfaces, and the lug holes were drilled. A provisional trial tibial component was placed and the knee was brought through range of motion. There was noted to be excellent extension and flexion. There was no significant instability. The polyethylene was trialed until there was good flexion and extension with excellent stability to the medial and lateral collaterals. The patella was tracking without thumbs. A size 8mm polyethylene component provided the best range of motion and stability with less than 2mm gapping with medial and lateral stress and full extension without significant hyperextension. The tibial cut surface was fully exposed. The tibia was then sized as a 3. The tibia had been previously marked during trialing to correspond to the center of the tibial component to help with rotation. The trial was aligned to this chanda, approximately rotated to the medial 1/3rd of the tibial tubercle. The trial was pinned into place. The tibia was prepared with a reamer and a keel punch and lug holes. The knee was then brought into extension and the patella was measured as 22mm. Using the patellar clamp and cut guide, this was resected to a flat surface with at least 13mm of thickness remaining. The size 35 patella fit the best. This was oriented and then clamped into position. The lugs were drilled. The trial components were removed. The final components were opened on the back table. The periosteal and capsular tissues, especially posteriorly, around the knee were then systematically injected with a periarticular cocktail consisting of 246mg of Ropivacaine, 0.5mg of Epinephrine, and 30mg of Ketorolac, diluted to 100cc. On the back table, with the implants opened, the cement was mixed. One batch of high viscosity cement was prepared with vacuum assistance. After the cement was ready a small amount was placed on the cut surface of the patella and the patellar button was clamped into position and held. While the cement was hardening, the cementless knee components were placed. Starting with the tibial component, the tibia was subluxed anteriorly and the lug holes of the component were lined up. The tibia was then impacted with an impactor and mallet until the tibial component was in contact with the tibia. The final polyethylene component was inserted. Then, the femoral component was inserted. The lug holes were aligned and the component was impacted into position. The knee was irrigated with Irrisept chlorhexadine solution. This was allowed to sit in the knee for 3 minutes and then it was irrigated out with saline. After the cement had finally cured, approximately 15min, the clamp was removed from the patella and the knee was taken through range of motion. The patella was tracking with a no-thumbs technique. The capsule was then reapproximated with a No. 1 Vicryl at multiple locations. The capsule was finally closed with a No. 2 Stratafix, barbed suture. The second dosing of 1g TXA was started. Deep tissues were then reapproximated with 0 Vicryl and 2-0 Vicryl. The skin was closed with a running 3-0 Monocryl in a subcuticular fashion. This was reinforced with skin glue. A Mepilex silver dressing was applied along with a [id number] AMPARO wrap. A CryoCuff was applied. Dania was transferred to the hospital bed without difficulty an suffering no apparent complication. Dania has a good prognosis. Physical therapy will start today and without restrictions, weight-bearing as tolerated. Aspirin 81mg BID will be used for DVT prophylaxis.
--- NOTE | 2022-02-18 13:24 | W.ANESPOSTOP ---
Postoperative Evaluation Date, Time and Location Date Performed: 02/18/22 Time Performed: 13:24 Patient Location: Day Surgery Unit Vital Signs Most Recent Imported Vital Signs: Most Recent Vital Signs Temp Pulse Resp BP Pulse Ox 36.2 C L 59 L 18 142/72 H 98 02/18/22 12:50 02/18/22 12:50 02/18/22 12:50 02/18/22 12:50 02/18/22 12:50 Pain Score Most Recent Pain Score: Most Recent Pain Score Pain Level 0 02/18/22 12:50 Assessment Mental Status: Awake (Alert & Oriented to Patient Baseline) Airway and Respiratory Function: Patent airway with normal (patient baseline) respiratory exam Cardiovascular Function: Hemodynamically Stable Hydration Status: Adequately Hydrated Nausea & Vomiting: No Nausea or Vomiting Pain: Pain is tolerable per patient Peripheral Nerve Block: Regional nerve block not resolved at time of post operative discharge
--- NOTE | 2022-02-18 14:26 | PT.INIE ---
Date of service: 02/18/22 Time of Service: 14:26 PT Notes Visit Reasons: R TKR Physical Therapy Day Surgery Initial Evaluation Date: 02/18/2022 Referring Doctor: JORDAN Hancock PT Orders: PT CONSULT: S/P Ortho Surgery Precautions: WBAT on R LE with AD. Patient Profile/Admitting Diagnosis: Dania is a 76-year-old female with degenerative joint disease of the right knee and status post right total knee arthroplasty on postoperative day 0. PMHX: Medical History?(Updated 11/17/21 @ 12:47 by Eri Steinberg) Glaucoma History of anemia Left cataract Synovitis of right knee Surgical History?(Updated 08/25/18 @ 10:32 by Minoo Roca) H/O right knee surgery History of cataract surgery History of colonoscopy History of esophagogastroduodenoscopy (EGD) History of right breast biopsy History of tonsillectomy Status post cataract extraction and insertion of intraocular lens of left eye (10/15/14) Status post cataract extraction and insertion of intraocular lens of right eye (06/24/18) Social History/Home Situation: Lives with in a private home with 13 steps to neter through the garage, rails on B sides. Independent with all aspects of ADLs prior to surgery although she states that it was getting so difficult to move her R leg duirng walking due to pain. Equipment Owned/DME: None Subjective: Amazed at how much less pain she has with walking. Denies headache, chest pain, and lightheadedness throughout. Objective: General Observation: Supine in stretcher. AMPARO wrap to R LE. Cryocuff to R LE. Mental Status: A and O x 4 Pain: 2/10 in the R knee ROM: Right Lower Extremity: Hip flexion WFL. Hip abduction WFL. Knee flexion about 10 degrees to 100 degrees. Knee extension -10 degrees. Ankle dorsiflexion WFL. Ankle plantarflexion WFL. Left Lower Extremity: Hip flexion WFL. Hip abduction WFL. Knee flexion WFL. Ankle dorsiflexion WFL. Ankle plantarflexion WFL. Strength: Right Lower Extremity: Hip flexors 4/5. Hip abductors 4/5. Knee flexors 3-/5. Knee extensors 3-/5. Ankle dorsiflexors 5/5. Ankle plantarflexors 5/5. Left Lower Extremity:Hip flexors 5/5. Hip abductors 5/5. Knee flexors 5/5. Knee extensors 5/5. Ankle dorsiflexors 5/5. Ankle plantarflexors 5/5. Sensation: Intact as to pain and light pressure in B LE. Denies tingling and numbness in B LE. Bed Mobility/Transfers: Supine to sit stand by assist Sit to stand stand by assist with FWW Stand to sit stahd by assist with FWW Bed to chair stand by assist with FWW Bed to toilet seat stand by assist with FWW Gait: 150 feet of level surface using FWW with stand by assist with step-through gait pattern. Reports pain level decreasing to 1/10 with weight bearing. Denies headache, chest pain, and lightheadedness throughout. Good quad activation. Stairs: Up and down 6 x 4-inch steps and 4 x 6-inch steps using B rails with step-to gait pattern requiring only stand by assist with good technique. THERA EX: Instructed and trained patient on safe exercises that can be done for the first two weeks- SLR x 10 LAQ x 10 Seated/supine heels slides x 10 Ankle DF/PF Gluteal sets x 10 Balance: Static Sitting: Normal Dynamic Sitting: Normal Static Standing: Fair Dynamic Standing: Fair Special Tests: Mobility Limitations Standardized Measure [facility] AM-PAC 6 clicks Basic Mobility Inpatient Short Form: Raw Score: 24 [facility] Score: 0 Informed Consent/Education: Patient instructed in purpose of PT consult. Packet containing TKA exercise protocol has been given to patient. Education and training on initial set of exercises that can be done at home have been completed with patient. Assessment: Dania requires the use of a front wheeled walker for all mobility ADL performance in order to maximize independence and reduce fall risk. Patient presents with clinical signs and symptoms consistent with current/admitting diagnoses that have resulted to mobility limitations, gait instability, generalized weakness, and impairment of motor control as demonstrated by the following impairment level findings: 1. Decreased strength to rightknee major muscle groups 2. Impaired standing balance 3. Limitation of joint range of motion in right knee Impairments are contributing to the following functional limitations: 1. Inability to safely ambulate without assistive device 2. Increase completion time for mobility ADL performance 3. Increased fall risk Patient is assessed as a 89553 moderate complexity based on the following: History: 76-year-old female with impairment level findings, functional limitations, and past medical history as indicated above Examination: Demonstrable impairment in strength, balance, and mobility level with underlying impairments and functional limitations as documented above Presentation: Evolving Decision Makin moderate Goals: N/A. PT evaluation and 1-2 treatment sessions only for functional mobility training using recommended AD and for HEP instruction. Plan of Care/Treatment Plan: N/A. PT evaluation and 1-2 treatment session only for functional mobility training using recommended AD and for HEP instruction. DISCHARGE RECOMMENDATIONS: [] Home with no services [] [] Home with services [specify] [X] Home with outpatient PT. Home when medically cleared by orthopedic surgeon. Will benefit from outpatient PT services in order to optimize functional mobility outcomes and community ambulation with no assistive device. [] SNF for continued rehabilitation [] [] Jail Care [] [] SNF versus LTC based on ability to participate and progress [] TREATMENT CODE/TIME: 77102 x 20 minutes, 72165 x 16 minutes beginning at 14:26 PM. Thank you for the opportunity to participate in the care of this patient. Sarah Jorge PT, DPT, CLT [facility] [place], [place]
== END 2022-02-18 15:20 | disposition home or self-care (01) ==
PROVIDERS: PCP Nurse Practitioner; Visit Provider Student in an Organized Health Care Education/Training Program
PROC: (CPT 27447; principal; 2022-02-18 10:00)
DX: M17.11 Unilateral primary osteoarthritis, right knee (principal); I10 Essential (primary) hypertension; G62.9 Polyneuropathy, unspecified
CPT/HCPCS: 27447; C1776; 76942; 97162; 97530; J0690; J1100; J2250; J2405

== ENCOUNTER 2022-03-05 09:45 | Outpatient (CLI) | payer MEDICARE, SELFPAY ==
--- NOTE | 2022-03-05 09:00 | DI.RAD_ITS ---
Exam(s) XR KNEE RT 1V EXAM: XR KNEE RT 1V CLINICAL HISTORY: 1st post op R TKA TECHNIQUE: COMPARISON: CR XR KNEE RT 1V from 02/09/2022 FINDINGS: Lateral view of the right knee was obtained. There is a total knee joint replacement in position. C omponents appear well seated. IMPRESSION: RADIATION DOSE DELIVERED: Total DLP
--- NOTE | 2022-03-05 09:00 | DI.RAD_ITS ---
Exam(s) XR STANDING ALIGNMENT EXAM: XR STANDING ALIGNMENT CLINICAL HISTORY: 1ST POST OP R TKA TECHNIQUE: COMPARISON: CR XR STANDING ALIGNMENT from 02/09/2022 FINDINGS: AP standing alignment views were obtained bilaterally. There is mild degenerative change of both hip s. There is a total knee joint replacement position on the right. There appear to be moderate to se franchesca degenerative changes involving the joints of the left knee. IMPRESSION: RADIATION DOSE DELIVERED: Total DLP
== END 2022-03-05 09:46 | disposition home or self-care (01) ==
LOC: DIORS 09:46
PROVIDERS: PCP Nurse Practitioner; Referring Provider Nurse Practitioner; Visit Provider Student in an Organized Health Care Education/Training Program
DX: Z96.651 Presence of right artificial knee joint (principal); Z47.1 Aftercare following joint replacement surgery
CPT/HCPCS: 73560; 77073

== ENCOUNTER → 2022-04-03 09:59 | Outpatient (BNVA) | payer MEDICARE, SELFPAY | PROVIDERS: PCP Nurse Practitioner; Referring Provider Nurse Practitioner; Visit Provider Physician Assistant | DX: Z47.1 Aftercare following joint replacement surgery (principal); Z96.651 Presence of right artificial knee joint ==

== ENCOUNTER → 2022-04-20 09:57 | Outpatient (BNVA) | payer MEDICARE, SELFPAY | PROVIDERS: PCP Nurse Practitioner; Referring Provider Nurse Practitioner; Visit Provider Student in an Organized Health Care Education/Training Program | DX: Z47.1 Aftercare following joint replacement surgery (principal); Z96.651 Presence of right artificial knee joint ==

== ENCOUNTER → 2022-10-27 13:37 | Outpatient (BNVA) | payer MEDICARE, SELFPAY | PROVIDERS: PCP Nurse Practitioner; Referring Provider Nurse Practitioner; Visit Provider Surgery | DX: L57.0 Actinic keratosis (principal) | CPT/HCPCS: 99202; 99213 ==

== ENCOUNTER → 2022-11-17 09:29 | Outpatient (BNVA) | payer MEDICARE, SELFPAY | PROVIDERS: PCP Nurse Practitioner; Referring Provider Nurse Practitioner; Visit Provider Surgery | DX: L57.0 Actinic keratosis (principal); D22.5 Melanocytic nevi of trunk | CPT/HCPCS: 99213 ==

== ENCOUNTER 2022-11-23 09:23 | Outpatient (REF) | payer MEDICARE, SELFPAY ==
--- NOTE | 2022-11-23 10:05 | SKI_PTH ---
PATIENT: Dania Funk LOC: [facility] U#:[id number] AGE/SX: 77/F ROOM: RE11/23/[address]: Marta Martinez MD : [id number] BED: DIS: 11/23/2022 SPEC #: [id number] RECD: 11/23/22 12:24 STATUS: JAYSON REPramod #: [id number] JAMES: 11/23/22 10:[address]: Marta Martinez DEPT: Surgical Specimen RECD BY: Susanna Lala ENTERED: 11/23/22 12:25 SP TYPE: FADIA NEAL DR: Marah Gonzales APRN Tissues: 1 - SKIN BIOPSY(SHAVE/PUNCH) 2 - SKIN BIOPSY(SHAVE/PUNCH) Procedures: SKIN LEVEL 4 Comments: [id number]
== END 2022-11-23 09:24 | disposition home or self-care (01) ==
LOC: LBN 09:23
PROVIDERS: PCP Nurse Practitioner; Visit Provider Surgery
DX: L82.1 Other seborrheic keratosis; D22.9 Melanocytic nevi, unspecified
CPT/HCPCS: 88305

== ENCOUNTER → 2022-11-23 09:23 | Outpatient (BNVA) | payer MEDICARE, SELFPAY | PROVIDERS: PCP Nurse Practitioner; Referring Provider Nurse Practitioner; Visit Provider Surgery | DX: L57.0 Actinic keratosis (principal); D22.4 Melanocytic nevi of scalp and neck | CPT/HCPCS: 11422 ==

== ENCOUNTER → 2022-11-30 11:09 | Outpatient (BNVA) | payer MEDICARE, SELFPAY | PROVIDERS: PCP Nurse Practitioner; Referring Provider Nurse Practitioner; Visit Provider Surgery | DX: L82.1 Other seborrheic keratosis (principal) | CPT/HCPCS: 99212 ==

== ENCOUNTER 2023-05-10 12:15 | Outpatient (CLI) | payer MEDICARE, SELFPAY ==
[2023-05-10 12:25] LABS: Abs Immature Grans 0.02 10^3/uL (0.0-0.06); Absolute Basophil Count 0.06 10^3/uL (0.0-0.2); Absolute Lymphocyte Count 1.94 10^3/uL (1.2-3.4); Absolute Monocyte Count 0.48 10^3/uL (0.1-0.8); Absolute Neutrophil Count 4.54 10^3/uL (1.2-6.7); Basophils % 0.9; HCT 44.3 % (36.0-46.0); HGB 15.4 g/dL (11.2-15.7); Immature Grans % 0.3; Lymphocytes % 27.6; MCH 30.3 pg (27.0-33.0); MCHC 34.8 % (32.0-36.0); MCV 87 fL (80-95); MPV 10.1 fL (8.0-11.0); Monocytes % 6.8; Neutrophils % 64.4; Platelet Count 251 10^3/uL (130-400); RBC 5.08 10^6/uL (3.93-5.22); RDW-SD 41.5 fL; WBC 7.04 10^3/uL (4.4-10.8)
[2023-05-10 12:42] LABS: ALT 26 U/L (14-59); AST 23 U/L (15-37); Albumin 3.8 g/dL (3.4-5.0); Alkaline Phosphatase 60 U/L (46-116); Anion Gap 9.5 mmol/L (3-11); BUN 22 mg/dL (7-18); Bilirubin, Total 0.7 mg/dL (0.2-1.0); CO2 26.5 mmol/L (21.0-32.0); CREATININE 1.3 mg/dL (0.55-1.02); Calcium 9.7 mg/dL (8.5-10.1); Chloride 105 mmol/L (98-107); Estimated GFR 41.83 (mL/min/1.73m2); Glucose 104 mg/dL (74-106); Potassium 4.4 mmol/L (3.5-5.1); Sodium 141 mmol/L (136-145); Total Protein 7.9 g/dL (6.4-8.2)
== END 2023-05-10 12:16 | disposition home or self-care (01) ==
LOC: LBO 12:15
PROVIDERS: PCP Nurse Practitioner; Visit Provider Nurse Practitioner
DX: Z79.01 Long term (current) use of anticoagulants (principal); Z86.718 Personal history of other venous thrombosis and embolism
CPT/HCPCS: 36415; 80053; 85025

== ENCOUNTER 2024-01-01 12:18 | Outpatient (CLI) | payer MEDICARE, SELFPAY ==
--- NOTE | 2024-01-01 | DI.RAD_ITS ---
Exam(s) XR FOOT LT COMPLETE EXAM: XR FOOT LT COMPLETE CLINICAL HISTORY: LEFT FOOT PAIN. TECHNIQUE: 2D digital imaging was performed of the left foot. Three images were obtained. AP, obli que and lateral views were obtained. COMPARISON: No exams were available for comparison FINDINGS: BONES: No acute fracture is present. No bony destructive lesion is seen. JOINTS: No dislocation present. There are mild degenerative changes seen at the 1st MTP joint. The j oints are otherwise well maintained. SOFT TISSUE: There is mild soft tissue swelling of the forefoot. No soft tissue gas is identified. IMPRESSION: 1. Mild degenerative changes seen at the 1st MTP joint. 2. Soft tissue swelling in the forefoot but no soft tissue gas is identified. DATA REPOSITORY: RADIATION DOSE DELIVERED:
--- OUTSIDE RECORDS SUMMARY | 2024-01-01 12:20 | XMS_ITS | Encounter Summary ---
Author Organization [facility] Address [address] [place] [address] Care Team Providers Care Safety Companion Name Role Phone Unknown, Provider Primary Care Provider [phone] Encounter Details Date Type Department Care Team (Late st Contact Info) Description 11/23/2022 Lab Requisition [facility] Pathology & Laboratory Medicine - [address] [phone] Benny Martinez MD [address] [place] [address] [address] [place], [place] [phone] Encounter for other general examination Social History Tobacco Use Types Packs/Day Years Used Date Smoking Tobacco: Never Assessed Sex and Gender Information Value Date Recorded Sex Assigned at Not on file Gender Identity Not on file Sexual Orientation Not on file documented as of this encounter Plan of Treatment Not on file documented as of this encounter Procedures Procedure Name Priority Date/Time Associated Diagnosis Comments SURGICAL PATHOLOGY Today 11/23/2022 10 :05 EDT Encounter for other general examination documented in this encounter Results * SURGICAL PATHOLOGY (11/23/2022 10:05 EDT) Note to Patient The following pathology results have been interpreted by your pathologist and may be available to you before your health provider has had the opportunity to review them. Please allow time for your provider to receive these results and explore management options, if applicable. 11/25/2022 11:29 EDT [facility] Final Diagnosis A. SKIN OF NECK, RIGHT, EXCISION: - Seborrheic keratosis, pigmented. B. SKIN OF NECK, LEFT, EXCISION: - Seborrheic keratosis. - Incidental melanocytic nevus, intradermal type. 11/25/2022 11:29 EDT [facility] Attestation By the signature below, the attending physician certifies that they have 1) personally conducted a gross and/or microscopic examination of the described specimen(s), and/or personally interpreted the results of laboratory testing of the described specimen(s), and 2) personally rendered or confirmed the above diagnosis. 11/25/2022 11:29 [facility] at 1129 Clinical History Not listed 11/25/2022 11:29 [facility] Gross Description A. Received in formalin labelled with proper patient identification (initials T, L) and right neck skin lesion is a 1.4 x 0.8 x 0.2 cm ellipse of lomax-white skin with a slightly off center 0.8 x 0.5 x 0.4 cm dark brown focally hypo pigmented waxy nodule, 0.1 cm from the nearest margin. There is another pale yellow waxy lesion adjacent to the nodule, close to the tip. The specimen is inked in blue, serially sectioned into 6 pieces and entirely submitted as follows: BLOCK STOKES A1- tips, reverse en face A2-A3- transverse sections B. Received in formalin labelled with proper patient identification (initials T, L) and left neck skin lesion is a 1.4 x 0.9 x 0.2 cm ellipse of lomax skin with a slightly off center 0.7 x 0.6 x 0.3 cm firm dark brown nodule, 0.1 cm from the nearest margin. Specimen is inked in blue, serially sectioned into 6 pieces and entirely submitted as follows: BLOCK STOKES B1- tips, reverse en face B2-B3- transverse sections JORDAN Horne(ASCP) 11/24/2022 9:41 11/25/2022 11:29 [facility] Performing Lab [facility] 11/25/2022 11:29 [facility] Scanned Images 11/25/2022 11:29 [facility] Tissue SPECIMEN FROM SKIN / Unknown 11/23/2022 10:05 EDT 11/23/2022 19:12 EDT Tissue specimen (specimen) SPECIMEN FROM SKIN / Unknown 11/23/2022 10:05 EDT 11/23/2022 19:12 EDT Benny Martinez MD PATHOLOGY ORDERA MAKENZIE [facility] [address] [place] [id number] documented in this encounter Visit Diagnoses Diagnosis Encounter for other general examination documented in this encounter Care Teams Safety Companion Relationship Specialty Start Date End Date Unknown, Provider, PCP - General 04/05/22 documented as of this encounter
--- OUTSIDE RECORDS SUMMARY | 2024-01-01 12:20 | XMS_ITS | Clinical Summary ---
Author Organization [facility] Address [address] [place] [address] Care Team Providers Care Clinical Program Consultant Name Role Phone Unknown, Provider Primary Care Provider Social History Tobacco Use Types Packs/Day Years Used Date Smoking Tobacco: Never Assessed Sex and Gender Information Value Date Recorded Sex Assigned at Not on file Gender Identity Not on file Sexual Orientation Not on file Plan of Treatment Health Maintenance Due Date Last Done Comments RSV Immunization ( o r 60+ Years) (1 - 1-dose 60+ series) 2003 Fall Risk Screening 08/10/2008 COVID-19 Vaccine (2022-24 season) 2022 Care Teams Clinical Program Consultant Relationship Specialty Start Date End Date Unknown, Provider, PCP - General 04/05/22
--- OUTSIDE RECORDS SUMMARY | 2024-01-01 12:20 | XMS_ITS | Referral Summary ---
Author Organization [facility] Address [address] [place] [address] Care Team Providers Care Assistant Merchandise Manager Name Role Phone Unknown, Provider Primary Care Provider Social History Tobacco Use Types Packs/Day Years Used Date Smoking Tobacco: Never Assessed Sex and Gender Information Value Date Recorded Sex Assigned at Not on file Gender Identity Not on file Sexual Orientation Not on file Plan of Treatment Not on file Care Teams Assistant Merchandise Manager Relationship Specialty Start Date End Date Unknown, Provider, PCP - General 04/05/22
--- NOTE | 2024-01-01 12:52 | DI.VRAD_ITS ---
PROCEDURE INFORMATION: Exam: XR Left Foot Exam date and time: 01/01/2024 12:24 PM Age: 78 years old Clinical indication: Other: Left foot pain TECHNIQUE: Imaging protocol: Radiologic exam of the left foot. Views: 3 or more views. COMPARISON: CR XR KNEE LT 3V AP,LAT,KATEY 11/17/2021 8:47 AM FINDINGS: Bones/joints: No acute fracture or dislocation identified. There is degenerative change of the 1st metatarsophalangeal joint, consisting of joint space narrowing and mild sclerosis. There is a focus of sclerosis in the neck of the 3rd metatarsal bone likely representing a small bone island. There is a small spur along the lateral margin of the base of the 5th metatarsal bone. There also appears to be a small spur along the lateral margin of the mid calcaneus. No bony destruction or erosive changes identified. Soft tissues: There is soft tissue swelling over the dorsum of the metatarsal bones but no soft tissue gas or foreign body. IMPRESSION: 1. No acute fracture or dislocation. 2. Degenerative change principally of the 1st metatarsophalangeal joint. 3. Soft tissue swelling over the dorsum of the foot without underlying soft tissue gas or foreign body. This does not exclude bone bruising, soft tissue injury or ligamentous injury. Dictated and Authenticated by: Edgar Holley MD. Ordering:KIMBER Bone MD
== END 2024-01-01 12:38 ==
LOC: DI 12:19
PROVIDERS: PCP Nurse Practitioner; Visit Provider Physician Assistant Medical
DX: M19.072 Primary osteoarthritis, left ankle and foot (principal)
CPT/HCPCS: 73630

== ENCOUNTER 2024-01-03 16:03 | Outpatient (CLI) | payer MEDICARE, SELFPAY ==
--- OUTSIDE RECORDS SUMMARY | 2024-01-03 16:06 | XMS_ITS | Data Portability ---
Author Organization [facility], [facility] [place] [address] Assessment No assessment recorded. Plan of Treatment Reminders Order Date Submit Date Provider Last Modified By Organization Details Last Modified Time Details Appointments None recorded. Lab None recorded. Referral invoice control clerk referral 2023 [facility], [address] [place] [address] Dr, [place], [address], 4 17:15:21 Procedures None recorded. Surgeries None recorded. Imaging XR, foot, 3 or more view 2023 [facility], [address], [place], [address], 4 12:54:26 Medication Orders prednisone 10 mg tablet 2023 024 [facility] [address], [address] [place] [address], [address], 4 11:56:11 Patient TargetsNo targets recorded. Patient Instructions Encounter Date Encounter Id Patient Instructions Last Modified By Organization Details Last Modified Time 01/01/2024 [id number] 1. I would like you to go up to the hospital to get x-rays of the foot for further evaluation. Once I have these results back I will call you to review findings. 2. I have sent prescription for prednisone 30 mg which she will take daily in the morning for the next 5 days. It is very important you take this medication with food. Taking it on empty stomach in combination with your blood thinner could cause stomach ulcer. Please continue to avoid all NSAIDs. 3. I think that this could be gouty flare but you have never had gout before. This is why I want x-ray to determine potential of underlying arthritis. Less likely do I think that there is a fracture 4. I do not think that this is infectious given where it is located on the foot. I do see that you have some pincher nails and I will send a referral for podiatry. [email or web address] Not available 01/01/2024 11:57:32 Reason for Referral Keno Clerk Referral for Abno rmality of nail of toe Referring Physician: Smitha Chavis, Family Medicine, Encounter Date: 01/01/2024 Results Created Date Observation Date Name Description Value Unit Range Abnormal Flag Note LastModifiedBy Organization Detail LastModifiedTime 01/01/20 24 01/01/2024 XR, foot, 3 or more view No observ ation record ed. [email or web address] [facility] [address], [place], [address], 01/01/2024 15:10:12 01/01/20 24 01/01/2024 XR, foot, 3 or more view Patien t Name: Jay Jay Johnson Unit #: [id number] [facility] Acc[facility] t #: [id number] Status : REG CLI Primar y Care Provid er: Marah Gonzales NP Date of Exam: Sex: F : 1945 Age: 78 Exam(s ) PROCED URE INFORM ATION: Exam: XR Left Foot Exam date and time: 024 12:24 PM Age: 78 years old Clinic al indica tion: Other: Left foot pain TECHNI QUE: Imagin g protoc ol: Radiol ogic exam of the left foot. Views: 3 or more views. COMPAR GIOVANNI: CR XR KNEE LT 3V AP,LAT ,KATEY 022 8:47 AM FINDIN GS: Bones/ joints : No acute fractu re or disloc ation identi fied. There is degene rative change of the 1st metata rsopha langea l joint, consis ting of joint space narrow ing and mild sclero sis. There is a focus of sclero sis in the neck of the 3rd metata rsal bone likely repres enting a small bone island . There is a small spur along the latera l margin of the base of the 5th metata rsal bone. There also appear s to be a small spur along the latera l margin of the mid calcan eus. No bony destru ction or erosiv e change s identi fied. Soft tissue s: There is soft tissue swelli ng over the dorsum of the metata rsal bones but no soft tissue gas or foreig n body. IMPRES KHADRA: 1. No acute fractu re or disloc ation. 2. Degene rative change princi pally of the 1st metata rsopha langea l joint. 3. Soft tissue swelli ng over the dorsum of the foot withou t underl amleia soft tissue gas or foreig n body. This does not exclud e bone bruisi ng, soft tissue injury or ligame ntous injury . Dictat ed and Eloise ta d by: Edgar Holley MD. Orderi ng:Genaro Bone MD Access ion#=[id number] Ordere d By: CC: ------ ------ ------ ------ ------ ------ ------ ------ ------ ------ ------ ------ ---- Dictat ed By: Report s vrad 1224 1251 Transc ribed By: Satish Merge 1224 This is privil eged, confid ential inform ation intend ed only for the provid er named. Any use or distri bution by any person other than this provid er is strict ly prohib ited. If you receiv e this report in error, please notify us immedi ately at and return the origin al report to us at the addres s above. Thank- you. [email or web address] [facility] [address], [place], [address], 01/01/2024 15:10:11 01/01/20 24 01/01/2024 x-ray imagi ng repor t Patien t Name: Jay Jay Johnsno Unit #: [id number] Loc: DI Orderi ng Provid er: Smitha Chavis Accoun t #: [id number] Status : REG CLI Primar y Care Provid er: Marah Gonzales NP Date of Exam: Sex: F Admiss ion Date: : 1945 Age: 78 Exam(s ) XR FOOT LT COMPLE TE EXAM: XR FOOT LT COMPLE TE CLINIC AL HISTOR Y: LEFT FOOT PAIN. TECHNI QUE: 2D digita l imagin g was perfor med of the left foot. Three images were obtain ed. AP, obliqu e and latera l views were obtain ed. COMPAR GIOVANNI: No exams were availa ble for compar giovanni FINDIN GS: BONES: No acute fractu re is presen t. No bony destru ctive lesion is seen. JOINTS : No disloc ation presen t. There are mild degene rative change s seen at the 1st MTP joint. The joints are otherw ise well mainta ined. SOFT TISSUE : There is mild soft tissue swelli ng of the forefo ot. No soft tissue gas is identi fied. IMPRES KHADRA: 1. Mild degene rative change s seen at the 1st MTP joint. 2. Soft tissue swelli ng in the forefo ot but no soft tissue gas is identi fied. DATA REPOSI TORY: RADIAT ION DOSE DELIVE RED: Ordere d By: Smitha Chavis CC: ------ ------ ------ ------ ------ ------ ------ ------ ------ ------ ------ ------ - Dictat ed By: Trino Hartmann M.D. 1558 155 Transc ribed By: Trino Hartmann 155 This is privil eged, confid ential inform ation intend ed only for the provid er named. Any use or distri bution by any person other than this provid er is strict ly prohib ited. If you receiv e this report in error, please notify us immedi rodrickly at and return the origin al report to us at the addres s above. Thank- you. [email or web address] [facility] [address], [place], [address] 01/01/2024 16:57:03 Result Notes Documentation Provider Name and Address Organization Details Recorded Time Xr, Foot, 3 Or More View : Patient Name: Dania Funk Unit #: [id number] Loc: DI Ordering Provider: Status: REG CLI Primary Care Provider: Marah Gonzales NP Date of Exam: Sex: F : 1945 Age: 78 Exam(s) PROCEDURE INFORMATION: Exam: XR Left Foot Exam date and time: 01/01/2024 12:24 PM Age: 78 years old Clinical indication: Other: Left foot pain TECHNIQUE: Imaging protocol: Radiologic exam of the left foot. Views: 3 or more views. COMPARISON: CR XR KNEE LT 3V AP,LAT,KATEY 11/17/2021 8:47 AM FINDINGS: Bones/joints: No acute fracture or dislocation identified. There is degenerative change of the 1st metatarsophalangeal joint, consisting of joint space narrowing and mild sclerosis. There is a focus of sclerosis in the neck of the 3rd metatarsal bone likely representing a small bone island. There is a small spur along the lateral margin of the base of the 5th metatarsal bone. There also appears to be a small spur along the lateral margin of the mid calcaneus. No bony destruction or erosive changes identified. Soft tissues: There is soft tissue swelling over the dorsum of the metatarsal bones but no soft tissue gas or foreign body. IMPRESSION: 1. No acute fracture or dislocation. 2. Degenerative change principally of the 1st metatarsophalangeal joint. 3. Soft tissue swelling over the dorsum of the foot without underlying soft tissue gas or foreign body. This does not exclude bone bruising, soft tissue injury or ligamentous injury. Dictated and Authenticated by: Edgar Holley MD. Ordering:KIMBER Bone MD Ordered By: CC: Dictated By: Reports vrad 01/01/24 1224 01/01/24 1251 Transcribed By: Satish Márquez 01/01/24 1224 This is privileged, confidential information intended only for the provider named. Any use or distribution by any person other than this provider is strictly prohibited. If you receive this report in error, please notify us immediately at [phone] and return the original report to us at the address above. Thank-you. [address], [place], [address], [facility] 01/01/2024 15:10:11 Problems Name Problem SNOMED Code Status Onset Date Resolution Date Notes Provider Name and Address Organization Details Recorded Time Pain of toe of left foot 1286239511720 08 Active [address], [place], [address] , [facility] 11:53:32 Elevated blood-press ure reading without diagnosis of hypertensio n 198596398 Active [address], [place], [address] , [facility] 4 12:05:02 Abnormality of nail of toe 338206724 Active [address], [place], [address] , [facility] 12:05:25 Problem Notes None recorded. Procedures Surgical History None recorded. Imaging Results Imaging Date Name Status [facility] Details LastModified Time 01/01/2024 XR, foot, 3 or more view completed [email or web address] [facility] [address], [place], [address], 01/01/2024 15:10:12 01/01/2024 XR, foot, 3 or more view completed [email or web address] [facility] [address], [place], [address], 01/01/2024 15:10:11 01/01/2024 x-ray imaging report completed [email or web address] [facility] [address] [place], [address] 01/01/2024 16:57:03 Procedure Notes None recorded. Medical Equipment None Reported. Allergies Allergen ID Allergen Name Allergen Category Reaction Reaction Severity Criticality Documentation Date Start Date Code Code System Note Provider Name and Address Organization Details Recorded Time 07902 Non-stero idal anti-infl ammatory agent (product) medicatio n Not available Not available Not available 01/01/2024 58711 005 SNOMED NIKOLAY Ruiz, [facility] 4 11:10:31 Medications Name Sig Start Date Stop Date Status Note LastModified by Organization Details LastModified Time prednisone 10 mg tablet Take 3 tablets every day by oral route in the morning for 5 days. 024 active Not Available Not Available Not Avai lable ropinirole active Not Available Not Av ailable Not Available gabapentin active Not Available Not Av ailable Not Available clonazepam active Not Available Not Av ailable Not Available Eliquis active Not Available Not Avail able Not Available Vitals Date Recorded Body weight Oxygen saturation Oxygen saturation in Arterial blood by Pulse oximetry Heart rate Respiratory rate Body temperature Systolic blood pressure Diastolic blood pressure Provider Name and Address Organization Details Last Updated DateTime 4 85118.6 3 g 99 % 99 % 87 /min 19 /min 98.2 [degF] 182 mm[Hg] 85 mm[Hg] NIKOLAY Ruiz [facility] 4 11:09:31 Social History Question Answer Notes LastModified by Organizat ion Details LastModified Time Tobacco Smoking Status Never Smoker NIKOLAY Ruiz [facility] 01/01/2024 11:12:16 What Was The Date Of Your Most Recent Tobacco Screening? 01/01/2024 [email or web address] Information not available 01/01/2024 Has Tobacco Cessation Counseling Been Provided? Yes [email or web address] Information not available 01/01/2024 On What Date Was Tobacco Cessation Counseling Provided? 01/01/2024 [email or web address] Information not available 01/01/2024 Do You Or Have You Ever Used Any Other Forms Of Tobacco Or Nicotine? No [email or web address] Information not available 01/01/2024 Sex: Female Functional Status None recorded. Mental Status None recorded. Family History Nothing Reported. Medical History No medical history recorded. Gynecological HistoryNo gynecological history recorded. Obstetrics History GPAL:G 0 P 0 0 0 0 Immunizations Vaccine Type Date Status Provider Name and Address Organization Details Recorded Time SARS-COV-2 (COVID-19) vaccine, UNSPECIFIED 03/25/2022 completed CARTER Rivas, [facility] 01/03/2024 09:57:46 SARS-COV-2 (COVID-19) vaccine, UNSPECIFIED 06/12/2020 [facility]/2024 09:57:49 SARS-COV-2 (COVID-19) vaccine, UNSPECIFIED 09/23/2021 completed CARTER Rivas, [facility] 01/03/2024 09:57:53 SARS-COV-2 (COVID-19) vaccine, UNSPECIFIED 02/15/2021 completed CARTER Rivas, [facility] 01/03/2024 09:57:59 SARS-COV-2 (COVID-19) vaccine, UNSPECIFIED 05/10/2023 CARTER Merrill, [facility] 01/03/2024 09:58:02 influenza, unspecified formulation 02/17/2017 completed CARTER Rivas, [facility] 01/03/2024 09:59:09 Pneumococcal conjugate PCV 13 03/05/2015 CARTER Merrill, [facility] 01/03/2024 09:59:16 pneumococcal polysaccharide PPV23 05/13/2010 completed CARTER Rivas, [facility] 01/03/2024 09:59:26 zoster live 12/12/2010 completed CARTER Rivas, [facility] 01/03/2024 10:00:11 influenza, unspecified formulation 09/23/2021 completed CARTER Rivas, [facility] 01/03/2024 10:00:22 Past Encounters Encounter ID Performer Location Encounter Start Date Encounter Closed Date Diagnosis/Indication Diagnosis SNOMED-CT Code Diagnosis ICD10 Code [id number] SMITHA CHAVIS PA-C [address] [address] 01/01/2024 11:01:38 01/01/2024 12:06:07 Pain of toe of left foot 3784006445 57124 M79.675 Elevated blood-pressure reading without diagnosis of hypertension 130294889 R03.0 Abnormalit y of nail of toe 647151579 L60.8 Health Concerns Section Related Observation LastModified by Organization Detai ls LastModified Time None Recorded Concern Status LastModified by Organization Details LastModified Time None Recorded Advance Directives Directive None Recorded Payers Encounter Date Sequence Insurance Name Policy Number Policy Jose Covered Member ID Jose Member ID Guarantor Name 01/01/2024 1 [place] [employer] Dania Regan Good [id number] Dania Regan Good Notes Date Note Type Note Provider Name and Address Organization Details Recorded Time 01/01/2024 text/html HPI Notes: Dania is an 78-year-old female who presents with pain in the left great toe which has been present for about 1 week. She thought she had a bit of an ingrown toenail and has been soaking it in Epsom salt and using bacitracin ointment and bandage which has helped greatly. In the last 3 days however she has developed redness at the MTP and is rather uncomfortable to walk and also uncomfortable with light touch. She has never had gout. She does not necessarily know of arthritis in this area. She does not think she has done anything to break it. She has not had fevers. She feels well otherwise. No other joints are affected [address], [place], [address], [facility]. 01/01/2024 17:12:08 OBGyn Episode No OBEpisode recorded.
--- OUTSIDE RECORDS SUMMARY | 2024-01-03 16:06 | XMS_ITS | Encounter Summary ---
Author Organization [facility] Address [address] [place] [address] Care Team Providers Care Form Layer Name Role Phone Unknown, Provider Primary Care Provider [phone] Encounter Details Date Type Department Care Team (Late st Contact Info) Description 11/23/2022 Lab Requisition [facility] Pathology & Laboratory Medicine - [address] [phone] Benny Martinez MD [address] [place] [address] [address] [place], [place] [phone] Encounter for other general examination Social History [...] management options, if applicable. 11/25/2022 11:29 EDT [facility] Final Diagnosis A. SKIN OF NECK, RIGHT, EXCISION: - Seborrheic keratosis, pigmented. B. SKIN OF NECK, LEFT, EXCISION: - Seborrheic keratosis. - Incidental melanocytic nevus, intradermal type. 11/25/2022 11:29 EDT [facility] Attestation By the signature below, the attending physician certifies that they have 1) personally conducted a gross and/or microscopic examination of the described specimen(s), and/or personally interpreted the results of laboratory testing of the described specimen(s), and 2) personally rendered or confirmed the above diagnosis. 11/25/2022 11:29 [facility] at 1129 Clinical History Not listed 11/25/2022 11:29 [facility] Gross Description A. Received in [...] sections JORDAN Horne(ASCP) 11/24/2022 9:41 11/25/2022 11:29 [facility] Performing Lab [facility] 11/25/2022 11:29 [facility] Scanned Images 11/25/2022 11:29 [facility] Tissue SPECIMEN FROM SKIN / Unknown 11/23/2022 10:05 EDT 11/23/2022 19:12 EDT Tissue specimen (specimen) SPECIMEN FROM SKIN / Unknown 11/23/2022 10:05 EDT 11/23/2022 19:12 EDT Benny Martinez MD PATHOLOGY ORDERA MAKENZIE [facility] [address] [place] [phone] documented in this encounter Visit Diagnoses Diagnosis Encounter for other general examination documented in this encounter Care Teams Form Layer Relationship Specialty Start Date End Date Unknown, Provider, PCP - General 04/05/22 documented as of this encounter
--- OUTSIDE RECORDS SUMMARY | 2024-01-03 16:06 | XMS_ITS | Clinical Summary ---
Author Organization [facility] Address [address] [place] [address] Care Team Providers Care Physical Education Department Chair Name Role Phone Unknown, Provider Primary Care [...] COVID-19 Vaccine (2022-24 season) 2022 Care Teams Physical Education Department Chair Relationship Specialty Start Date End Date Unknown, Provider, PCP - General 04/05/22
--- OUTSIDE RECORDS SUMMARY | 2024-01-03 16:06 | XMS_ITS | Referral Summary ---
Author Organization [facility] Address [address] [place] [address] Care Team Providers Care Application Systems Administrator Name Role Phone Unknown, Provider Primary Care Provider Social History Tobacco Use Types Packs/Day Years Used Date Smoking Tobacco: Never Assessed Sex and Gender Information Value Date Recorded Sex Assigned at Not on file Gender Identity Not on file Sexual Orientation Not on file Plan of Treatment Not on file Care Teams Application Systems Administrator Relationship Specialty Start Date End Date Unknown, Provider, PCP - General 04/05/22
--- OUTSIDE RECORDS SUMMARY | 2024-01-03 16:06 | XMS_ITS | Continuity of Care Document ---
Author Organization [place] - [facility] [employer] [facility], [facility] Address [address] [place] [address] Assessment No assessment recorded. Plan of Treatment Reminders Order Date Submit Date Provider Last Modified By Organization Details Last Modified Time Details Appointments None recorded. Lab None recorded. Referral patient service representative referral 2023 [facility], [address] [place] [address] Dr, [place], [address], 17:15:21 Procedures None recorded. Surgeries None recorded. Imaging XR, foot, 3 or more view 2023 [facility], [address], [place], [address], 12:54:26 Medication Orders prednisone 10 mg tablet 2023 [facility] [address], [address] [place] [address], [address], 11:56:11 Patient TargetsNo targets recorded. Patient Instructions Encounter Date Encounter Id Patient Instructions Last Modified By Organization Details Last Modified Time 01/01/2024 [id number] 1. 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 This does not exclud e bone bruisi ng, soft tissue injury or ligame ntous injury . Dictat ed and Eloise ta d by: Edgar Holley MD. Orderi ng:Genaro Bone MD Access ion#=[id number] Ordere d By: CC: ------ ------ ------ ------ ------ ------ ------ ------ ------ ------ ------ ------ ---- Dictat ed By: Report s vrad 1224 1251 Transc ribed By: Di Merge 1224 This is privil eged, confid [...] the addres s above. Thank- you. [email or web address] [facility] [address], [place], [address], 01/01/2024 15:10:11 01/01/20 24 01/01/2024 x-ray imagi ng repor t Patien t Name: Jay Jay Jonhson Unit #: [id number] Loc: DI Orderi ng Provid er: Smitha Chavis Accoun t #: [id number] Status : REG CLI Primar [...] Dictat ed By: Trino Hartmann M.D. 1558 1558 Transc ribed By: Trino Hartmann 155 This is privil eged, confid ential inform ation intend ed only for the provid er named. Any use or distri bution by any person other than this provid er is strict ly prohib ited. If you receiv e this report in error, please notify us immedi cam at and return the origin al report to us at the addres s above. Thank- you. [email or web address] [facility] [address], [place], [address] 01/01/2024 16:57:03 Result Notes Documentation Provider Name and Address Organization Details Recorded Time Xr, Foot, 3 Or More View : Patient Name: Dania Funk Unit #: [id number] Loc: DI Ordering Provider: Status: REG CLI [...] Bone MD Ordered By: CC: Dictated By: Harish vrad 01/01/24 1224 01/01/24 1251 Transcribed By: Ting Márquez 01/01/24 1224 This is privileged, confidential information intended only for the provider named. Any use or distribution by any person other than this provider is strictly prohibited. If you receive this report in error, please notify us immediately at [phone] and return the original report to us at the address above. Thank-you. [address], [place], [address], [facility] 01/01/2024 15:10:11 Problems Name Problem SNOMED Code Status Onset Date Resolution Date Notes Provider Name and Address Organization Details Recorded Time Pain of toe of left foot 5852846799503 08 Active [address], [place], [address] , [facility] 4 11:53:32 Elevated blood-press ure reading without diagnosis of hypertensio n 447183985 Active [address], [place], [address] , [facility] 4 12:05:02 Abnormality of nail of toe 347229942 Active [address], [place], [address] , [facility] 4 12:05:25 Problem Notes None recorded. Medical Equipment None Reported. Allergies Allergen ID Allergen Name Allergen Category Reaction Reaction Severity Criticality Documentation Date Start Date Code Code System Note Provider Name and Address Organization Details Recorded Time 26404 Non-stero idal anti-infl ammatory agent (product) medicatio n Not available Not available Not available 01/01/2024 45392 005 [facility]ED [facility] 11:10:31 Medications Name Sig Start Date [...] Address Organization Details Last Updated DateTime 4 23315.6 3 g 99 % 99 % 87 /min 19 /min 98.2 [degF] 182 mm[Hg] 85 mm[Hg] Meryl Hartmann MA [facility] 4 11:09:31 Social History Question Answer Notes LastModified by Organizat ion Details LastModified Time Tobacco Smoking Status Never Smoker NIKOLAY Ruiz, [facility] 01/01/2024 11:12:16 What Was The Date Of Your Most Recent Tobacco Screening? 01/01/2024 [email or web address] Information not available 01/01/2024 Has Tobacco Cessation Counseling Been Provided? Yes [email or web address] Information not available 01/01/2024 On What Date Was Tobacco Cessation Counseling Provided? 01/01/2024 [email or web address] Information not available 01/01/2024 Do You Or Have You Ever Used Any Other Forms Of Tobacco Or Nicotine? No [email or web address] Information not available 01/01/2024 Sex: Female Functional Status None recorded. Mental Status None recorded. Family History Nothing Reported. Medical History No medical history recorded. Gynecological HistoryNo gynecological history recorded. Obstetrics History GPAL:G 0 P 0 0 0 0 Immunizations Vaccine Type Date Status Provider Name and Address Organization Details Recorded Time SARS-COV-2 (COVID-19) vaccine, UNSPECIFIED 03/25/2022 completed CARTER Rivas, [facility] 01/03/2024 09:57:46 SARS-COV-2 (COVID-19) vaccine, UNSPECIFIED 06/12/2020 completed CARTER Rivas, [facility] 01/03/2024 09:57:49 SARS-COV-2 (COVID-19) vaccine, UNSPECIFIED 09/23/2021 completed CARTER Rivas, [facility] 01/03/2024 09:57:53 SARS-COV-2 (COVID-19) vaccine, UNSPECIFIED 02/15/2021 completed CARTER Rivas, [facility] 01/03/2024 09:57:59 SARS-COV-2 (COVID-19) vaccine, UNSPECIFIED 05/10/2023 completed CARTER Rivas, [facility] 01/03/2024 09:58:02 influenza, unspecified formulation 02/17/2017 completed CARTER Rivas, [facility] 01/03/2024 09:59:09 Pneumococcal conjugate PCV 13 03/05/2015 completed CARTER Rivas, [facility] 01/03/2024 09:59:16 pneumococcal polysaccharide PPV23 05/13/2010 completed CARTER Rivas, [facility] 01/03/2024 09:59:26 zoster live 12/12/2010 completed CARTER Rivas, [facility] 01/03/2024 10:00:11 influenza, unspecified formulation 09/23/2021 completed CARTER Rivas, [facility] 01/03/2024 10:00:22 Past Encounters Encounter ID Performer Location Encounter Start Date Encounter Closed Date Diagnosis/Indication Diagnosis SNOMED-CT Code Diagnosis ICD10 Code [id number] SMITHA CHAVIS PA-C [address] [address] 01/01/2024 11:01:38 01/01/2024 12:06:07 Pain of toe of left foot 1562725808 71039 M79.675 Elevated blood-pressure reading without diagnosis of hypertension 979562896 R03.0 Abnormalit y of nail of toe 899747246 L60.8 Health Concerns Section Related Observation LastModified by Organization Detai ls LastModified Time None Recorded Concern Status LastModified by Organization Details LastModified Time None Recorded Payers Encounter Date Sequence Insurance Name Policy Number Policy Jose Covered Member ID Jose Member ID Guarantor Name 01/01/2024 1 [place]ICARE [place]: [employer] Dania Funk [id number] Dania Funk Notes Date Note Type Note Provider Name [...] well otherwise. No other joints are affected SMITHA CHAVIS PA-C [address], [place], [address], [facility]. 01/01/2024 17:12:08 OBGyn Episode No OBEpisode recorded.
[2024-01-03 16:48] LABS: Uric Acid 8.5 mg/dL (2.6-6.0)
== END 2024-01-03 16:04 | disposition home or self-care (01) ==
LOC: LBO 16:05
PROVIDERS: PCP Nurse Practitioner; Visit Provider Nurse Practitioner
DX: M79.675 Pain in left toe(s) (principal); Z23 Encounter for immunization; I10 Essential (primary) hypertension
CPT/HCPCS: 36415; 84550

== ENCOUNTER → 2024-01-05 10:43 | Outpatient (BNVA) | payer MEDICARE, SELFPAY | PROVIDERS: PCP Nurse Practitioner; Referring Provider Nurse Practitioner; Visit Provider Nurse Practitioner Family | DX: Z86.718 Personal history of other venous thrombosis and embolism (principal); G60.8 Other hereditary and idiopathic neuropathies; Z79.01 Long term (current) use of anticoagulants; M79.675 Pain in left toe(s); L60.0 Ingrowing nail; M10.072 Idiopathic gout, left ankle and foot; L60.3 Nail dystrophy | CPT/HCPCS: 11721; 99203; 99213 ==

== ENCOUNTER → 2024-05-10 10:42 | Outpatient (BNVA) | payer MEDICARE, SELFPAY | PROVIDERS: PCP Nurse Practitioner; Referring Provider Nurse Practitioner; Visit Provider Podiatrist | DX: Z86.718 Personal history of other venous thrombosis and embolism (principal); Z86.2 Personal history of diseases of the blood and blood-forming organs and certain disorders involving the immune mechanism; L60.2 Onychogryphosis; L60.0 Ingrowing nail ==

== ENCOUNTER → 2024-05-25 11:03 | Outpatient (BNVA) | payer MEDICARE, SELFPAY | PROVIDERS: PCP Nurse Practitioner; Referring Provider Nurse Practitioner; Visit Provider Podiatrist | DX: L60.0 Ingrowing nail (principal); Z86.718 Personal history of other venous thrombosis and embolism; Z86.2 Personal history of diseases of the blood and blood-forming organs and certain disorders involving the immune mechanism; L60.2 Onychogryphosis | CPT/HCPCS: 11750 ==

== ENCOUNTER → 2024-06-13 10:44 | Outpatient (BNVA) | payer MEDICARE, SELFPAY | PROVIDERS: PCP Nurse Practitioner; Referring Provider Nurse Practitioner; Visit Provider Podiatrist | DX: L60.0 Ingrowing nail (principal); Z86.718 Personal history of other venous thrombosis and embolism; Z86.2 Personal history of diseases of the blood and blood-forming organs and certain disorders involving the immune mechanism; L60.2 Onychogryphosis | CPT/HCPCS: 99213 ==

== ENCOUNTER 2024-06-13 11:35 | Outpatient (CLI) | payer MEDICARE, SELFPAY ==
[2024-06-13 13:30] LABS: ALT 24 U/L (14-59); AST 24 U/L (15-37); Albumin 3.6 g/dL (3.4-5.0); Alkaline Phosphatase 59 U/L (46-116); Anion Gap 8.1 mmol/L (3-11); BUN 27 mg/dL (7-18); Bilirubin, Total 0.6 mg/dL (0.2-1.0); CO2 25.9 mmol/L (21.0-32.0); CREATININE 1.4 mg/dL (0.55-1.02); Calcium 9.4 mg/dL (8.5-10.1); Calculated LDL 107 mg/dL (<100); Chloride 110 mmol/L (98-107); Cholesterol 190 mg/dL (<200); Estimated GFR 38.03 (mL/min/1.73m2); Glucose 90 mg/dL (74-106); HDL Cholesterol 55 mg/dL (>or=50); Potassium 4.7 mmol/L (3.5-5.1); Sodium 144 mmol/L (136-145); Triglyceride 140 mg/dL (<150)
== END 2024-06-13 11:36 | disposition home or self-care (01) ==
LOC: LBO 11:39
PROVIDERS: PCP Nurse Practitioner; Visit Provider Nurse Practitioner
DX: E78.5 Hyperlipidemia, unspecified (principal); I10 Essential (primary) hypertension
CPT/HCPCS: 36415; 80053; 80061; 99213